=== PATIENT | female | born 1935 | race Caucasian/White ===

== ENCOUNTER → 2021-09-28 15:02 | Outpatient (CLI) | payer MEDICARE, OTHER, SELFPAY ==
--- NOTE | 2021-09-28 15:03 | DI.MRI.S_ITS ---
PROCEDURE: MR KNEE RT WO CON INDICATIONS: knee pain suspect meniscus injury TECHNIQUE: Noncontrast sagittal PD fast spin echo and T2 fast spin echo with fat saturation, sagittal 3-D FLASH with fat saturation; coronal T1 spin echo and PD fast spin echo with fat saturation, and axial PD fast spin echo with fat saturation through the knee. COMPARISON: [facility] ([facility]), CR, XR KNEE RT 3V, 09/14/2021, 9:21. FINDINGS: Image quality: Excellent. Menisci: There is large complex tear of the lateral meniscus involving the anterior horn, body and posterior horn. There is nondisplaced horizontal tear versus intrasubstance degeneration of the posterior horn and the body of the medial meniscus. The meniscal root ligaments appear intact. Cruciate ligaments: There may be partial tear of the distal anterior cruciate ligament. The posterior cruciate ligament appears intact. Medial structures: The medial collateral ligament appears intact. The semimembranosus tendon insertions and meniscocapsular junction appear intact. Visualized portions of the pes anserinus tendons appear normal. No abnormal bursal fluid. Lateral structures: There is partial tear/sprain of the proximal lateral collateral ligament. The biceps femoris tendon appear intact. The popliteus tendon appears normal. Iliotibial band appears normal. Anterior structures: The quadriceps and patellar tendons appear intact. Patellar alignment is normal. No femoral trochlear dysplasia or ventral trochlear prominence. No edema in the infrapatellar fat pad. Bones and cartilage: No bone marrow contusions or fractures. There is full-thickness cartilage defects involving the weight bearing portion of the lateral femoral condyle and lateral tibial plateau. Subchondral edema in the lateral femoral condyle and lateral tibial plateau. There is [id number] cartilage thinning and fibrillation of the lateral femorotibial compartment and patellofemoral compartment. Joint space: There is [id number] knee joint fluid. Small Lazaro's cyst. Normal appearing synovial plicae are incidentally noted. IMPRESSION: 1. Large complex tear of the lateral meniscus involving the anterior horn, body and posterior horn. 2. Nondisplaced horizontal tear versus intrasubstance degeneration of the body and posterior horn of the medial meniscus. 3. Suspect partial tear of the distal ACL. 4. Partial tear/sprain of LCL. 5. Full-thickness cartilage defects of the lateral femoral condyle and lateral tibial plateau with subchondral edema. 6. [id number] knee joint effusion Dictated by: Maday Arriola M.D. on 09/29/2021 at 11:00 Approved by: Maday Arriola M.D. on 09/29/2021 at 11:16
== END ==
PROVIDERS: PCP Family Medicine; Referring Provider Family Medicine; Visit Provider Family Medicine
DX: S83.271A Complex tear of lateral meniscus, current injury, right knee, initial encounter (principal); S83.411A Sprain of medial collateral ligament of right knee, initial encounter; M25.561 Pain in right knee; M25.461 Effusion, right knee
CPT/HCPCS: 73721

== ENCOUNTER → 2022-01-01 13:55 | Outpatient (CLI) | payer MEDICARE, OTHER, SELFPAY ==
[2022-01-01 19:59] LABS: Add Manual Diff / Slide Review NO; Basophils Absolute Auto 100 /uL (0-100); Basophils Percent Auto 1.3 % (0-2); Eosinophils Absolute Auto 300 /uL (0-450); Eosinophils Percent Auto 6.3 % (2-4); Hematocrit 41.2 % (36-46); Hemoglobin 14.1 g/dL (12.0-16.0); Lymphocytes Absolute Auto 1700 /uL (1100-4500); Lymphocytes Percent Auto 34.5 % (25-40); Mean Corpuscular HGB Conc 34.3 % (30-36); Mean Corpuscular Hemoglobin 30.4 PG (26-34); Mean Corpuscular Volume 88.5 fL (80-100); Monocytes Absolute Auto 600 /uL (0-900); Monocytes Percent Auto 11.6 % (3-14); Neutrophils Absolute Auto 2200 /uL (1500-7000); Neutrophils Percent Auto 46.3 % (50-75); Platelet Count 275 X10^3/uL (150-400); Red Blood Cell Count 4.65 X10^6/uL (4.0-5.2); Red Cell Distribution Width 12.8 % (11.6-14.8); White Blood Cell Count 4.8 X10^3/uL (4.5-11.0)
[2022-01-01 20:02] LABS: BUN Creatinine Ratio 23.4 (6-22); Blood Urea Nitrogen 15 mg/dL (7-17); Calcium 8.9 mg/dL (8.4-10.2); Carbon Dioxide 34 mmol/L (22-32); Chloride 99 mmol/L (98-107); Cholesterol 260 mg/dL (140-199); Estimated Glomerular Filt Rate > 60 mL/min (>60); Glucose 100 mg/dL (80-110); HDL Cholesterol 53 mg/dL (40-60); HEMOLYSIS 15 (0-50); LDL Cholesterol Calculated 127 mg/dL (<100); Potassium 4.4 mmol/L (3.4-5.1); Sodium 137 mmol/L (137-145); Triglycerides 399 mg/dL (35-150)
== END ==
PROVIDERS: PCP Family Medicine; Visit Provider Family Medicine
DX: S83.203D Other tear of unspecified meniscus, current injury, right knee, subsequent encounter (principal); G45.9 Transient cerebral ischemic attack, unspecified; D50.9 Iron deficiency anemia, unspecified; I10 Essential (primary) hypertension
CPT/HCPCS: 80048; 80061; 85025

== ENCOUNTER → 2022-05-16 08:42 | Outpatient (CLI) | payer MEDICARE, OTHER, SELFPAY ==
[2022-05-16 19:56] LABS: Cholesterol 264 mg/dL (140-199); HDL Cholesterol 51 mg/dL (40-60); LDL Cholesterol Calculated 188 mg/dL (<100); Triglycerides 127 mg/dL (35-150)
== END ==
PROVIDERS: PCP Family Medicine; Visit Provider Family Medicine
DX: G45.9 Transient cerebral ischemic attack, unspecified (principal); E78.2 Mixed hyperlipidemia
CPT/HCPCS: 80061

== ENCOUNTER → 2023-04-03 10:59 | Outpatient (CLI) | payer MEDICARE, OTHER, SELFPAY ==
[2023-04-03 19:31] LABS: BUN Creatinine Ratio 11.9 (6-22); Blood Urea Nitrogen 8 mg/dL (7-17); Carbon Dioxide 31 mmol/L (22-32); Chloride 98 mmol/L (98-107); Cholesterol 261 mg/dL (140-199); Estimated Glomerular Filt Rate > 60 mL/min (>60); Glucose 97 mg/dL (80-110); HDL Cholesterol 63 mg/dL (40-60); HEMOLYSIS < 15 (0-50); LDL Cholesterol Calculated 172 mg/dL (<100); Sodium 138 mmol/L (137-145); Triglycerides 132 mg/dL (35-150)
== END ==
PROVIDERS: PCP Family Medicine; Visit Provider Family Medicine
DX: E78.2 Mixed hyperlipidemia (principal); I67.2 Cerebral atherosclerosis; G45.9 Transient cerebral ischemic attack, unspecified; I10 Essential (primary) hypertension
CPT/HCPCS: 80048; 80061

== ENCOUNTER 2023-05-15 11:19 | Observation (INO) | payer MEDICARE, OTHER, SELFPAY ==
[2023-05-15] VITALS (24 sets, daily range): BP systolic 107–167; BP diastolic 56–71; PULSE 54–100; RESP 16–28; TEMP 36.1–36.4; O2SAT 93–98; BMI 20.8
--- NOTE | 2023-05-15 11:35 | DI.RAD.S_ITS ---
PROCEDURE: XR CHEST 1V INDICATIONS: Possible stroke TECHNIQUE: One view of the chest was acquired. COMPARISON: [facility], RG, XR CXR 1V, 04/01/2015, 5:43. FINDINGS: Surgical changes and devices: None. Lungs and pleura: Lungs are clear. No pleural effusions or pneumothorax. Mediastinum: Mediastinal contours appear normal. Heart size is normal. Bones and chest wall: No suspicious bony lesions. Overlying soft tissues appear unremarkable. IMPRESSION: No acute cardiopulmonary abnormality is seen. Dictated by: Marquez Bauer M.D. on 05/15/2023 at 12:04 Approved by: Marquez Bauer M.D. on 05/15/2023 at 12:04
--- NOTE | 2023-05-15 11:35 | DI.CT.S_ITS ---
PROCEDURE: CT HEAD/BRAIN WO CON INDICATIONS: Positive BE-FAST, Stroke symptoms TECHNIQUE: Noncontrast 4.5 mm thick angled axial sections acquired from the foramen magnum to the vertex, with coronal and sagittal reformats. For radiation dose reduction, the following was used: automated exposure control, adjustment of mA and/or kV according to patient size. COMPARISON: None. FINDINGS: Image quality: Diagnostic. CSF spaces: Basal cisterns are patent. No extra-axial fluid collections. The ventricles are symmetric in size and shape. Brain: No intracranial bleeds or masses. There is cerebral volume loss for age, with resultant ventricular and sulcal prominence. There are periventricular and deep white matter chronic small vessel ischemic changes. There is intracranial internal carotid artery atherosclerosis. Skull and face: Calvarium and visualized facial bones appear intact, without suspicious lesions. Lens replacements. Sinuses: Visualized sinuses and mastoids are clear. IMPRESSION: No acute intracranial pathology. Dictated by: Marquez Bauer M.D. on 05/15/2023 at 12:05 Approved by: Marquez Bauer M.D. on 05/15/2023 at 12:06
[2023-05-15 11:55] LABS: Add Manual Diff / Slide Review NO; Basophils Absolute Auto 0 /uL (0-100); Basophils Percent Auto 0.5 % (0-2); Eosinophils Absolute Auto 100 /uL (0-450); Eosinophils Percent Auto 1.4 % (2-4); Hematocrit 40.3 % (36-46); Lymphocytes Absolute Auto 1300 /uL (1100-4500); Lymphocytes Percent Auto 20.8 % (25-40); Mean Corpuscular HGB Conc 34.7 % (30-36); Mean Corpuscular Hemoglobin 30.7 PG (26-34); Mean Corpuscular Volume 88.4 fL (80-100); Monocytes Absolute Auto 400 /uL (0-900); Monocytes Percent Auto 7.1 % (3-14); Neutrophils Absolute Auto 4300 /uL (1500-7000); Neutrophils Percent Auto 70.2 % (50-75); Platelet Count 262 X10^3/uL (150-400); Red Blood Cell Count 4.56 X10^6/uL (4.0-5.2); Red Cell Distribution Width 13.8 % (11.6-14.8); White Blood Cell Count 6.1 X10^3/uL (4.5-11.0)
[2023-05-15 12:00] LABS: Prothrombin Time 11.2 SECONDS (9.4-12.5)
[2023-05-15 12:03] LABS: PTT Partial Thromboplastin Tim 31 SECONDS (25.1-36.5)
[2023-05-15 12:05] LABS: Alanine Aminotransferase 11 IU/L (<35); Albumin 3.8 g/dL (3.5-5.0); Albumin Globulin Ratio 1.2 (1.0-2.8); Alkaline Phosphatase 63 U/L (38-126); Aspartate Aminotransferase 24 IU/L (14-36); BUN Creatinine Ratio 19.4 (6-22); Bilirubin Total 0.4 mg/dL (0.2-1.3); Blood Urea Nitrogen 14 mg/dL (7-17); Calcium 8.8 mg/dL (8.4-10.2); Carbon Dioxide 28 mmol/L (22-32); Chloride 102 mmol/L (98-107); Creatine Kinase 29 U/L (30-135); Estimated Glomerular Filt Rate > 60 mL/min (>60); Globulin 3.2 g/dL (1.7-4.1); Glucose 141 mg/dL (80-110); HEMOLYSIS < 15 (0-50); Magnesium 1.9 mg/dL (1.6-2.3); Potassium 3.6 mmol/L (3.4-5.1); Sodium 136 mmol/L (137-145)
[2023-05-15 12:06] LABS: UR Morphine/Opiate cutoff 300 Negative (Negative); Ur Creatinine Normal (Normal); Ur Specific Gravity Normal (Normal); Urine Amphetamines Negative (Negative); Urine Barbiturates Negative (Negative); Urine Benzodiazepines Negative (Negative); Urine Cocaine Negative (Negative); Urine MDMA Negative (Negative); Urine Methadone Negative (Negative); Urine Methamphetamines Negative (Negative); Urine Oxycodone Negative (Negative); Urine Phencyclidine Negative (Negative); Urine Tetrahydrocannabinol Negative (Negative); Urine Tricyclic Antidepressant Negative (Negative); Urine pH Normal (Normal)
[2023-05-15 12:16] LABS: Troponin I < 0.012 ng/mL (0.01-0.034)
--- NOTE | 2023-05-15 13:34 | ED_ITS ---
HPI - Neuro Symptoms/Deficit General Chief Complaint: Neuro Symptoms/Deficit Stated Complaint: is not making eye contact Time Seen by Provider: 05/15/23 13:20 Source: patient and family Mode of arrival: Ambulatory History of Present Illness HPI Narrative: Patient here with daughter for complaints of right temporal headache and vision changes. Patient states headache started slowly on this past Saturday. Seen by primary care this past Saturday for headache no new medications or workup was done. However last night vision changes occurred she states with or without headache she would get still photos in her vision like a flip book movie. Exam of the eyes were isolated and was inconsistent with number of fingers shown for each eye and at times would not be able to see any objects in the left eye. Currently no headache. Fast exam otherwise negative however with NIH score of 1 for vision changes. Patient states she has had IV contrast with CT scan before it just causes her nausea. No rash no trouble breathing no swelling. There has been no slurred speech facial droop. No limb numbness tingling or weakness. On Anticoagulants: No (162mg aspirin) Related Data Home Medications Medication Instructions Recorded Confirmed aspirin 81 mg tablet 162 mg PO DAILY 05/15/23 05/17/23 Previous Rx's Medication Instructions Recorded atenolol 50 mg tablet 50 mg PO DAILY #30 tabs 10/23/21 lisinopril 40 mg tablet 40 mg PO DAILY #90 tabs 12/27/21 atorvastatin 40 mg tablet 40 mg PO BEDTIME 30 days #30 tabs 05/16/23 clopidogrel 75 mg tablet 75 mg PO DAILY 30 days #30 tabs 05/16/23 Allergies Allergy/AdvReac Type Severity Reaction Status Date / Time Iodine and Iodide Containing Allergy Mild Vomiting Verified 05/17/23 10:55 Produc morphine Allergy Mild Verified 05/17/23 10:55 Review of Systems Review of Systems Narrative: GENERAL: negative chills, fatigue, malaise, fever, sweats. HEENT: negative sinus pain, ear pain, sore throat RESPIRATORY: negative dyspnea, cough CARDIOVASCULAR: negative chest pain, palpitations GASTROINTESTINAL: negative nausea, vomiting, abdominal pain : negative dysuria, frequency, hematuria MUSCULOSKELETAL: negative muscle or bony pain SKIN: negative rash, skin lesions NEUROLOGIC: negative weakness, numbness, positive headache, positive vision changes ROS Unobtainable: All systems reviewed & are unremarkable except as noted in HPI and below Hematologic/Lymphatic On Anticoagulants: No (162mg aspirin) Patient History Medical History (Updated 05/17/23 @ 13:47 by Aditya Jiang MD) Hyperlipidemia, mixed Right ACL tear Tear of meniscus of right knee Epidural abscess Iron deficiency anemia Cerebral atherosclerosis Primary open angle glaucoma 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 pt lives alone snug pushpa every day -- checks in with them by 930 am every day. 04/2023 Smoking Status: Never smoker Substance Use Type: does not use Exam Narrative Exam Narrative: GENERAL: in no distress, not toxic not dyspneic HEAD: Normocephalic. EYES: Pupils equal round EOMI ENT: Mucous membranes moist. NECK: Trachea midline. CARDIOVASCULAR: Regular rate and rhythm RESPIRATORY: Clear to auscultation. Breath sounds equal bilaterally. No wheezes, rales, or rhonchi. GASTROINTESTINAL: Abdomen soft, non-tender EXTREMITIES: No gross deformities. BACK: No flank tenderness. NEURO: AOx4. Clear speech no facial droop light touch intact to bilateral face and hands and legs are strong equal production support developer. Negative pronator drift. [id number] intact. However isolating each eye patient is inconsistent with perception of have any fingers SKIN: Warm and dry PSYCH: Not anxious, is cooperative Initial Vital Signs Initial Vital Signs: Vital Signs Temperature 97.3 F L 05/15/23 11:25 Pulse Rate 74 05/15/23 11:25 Respiratory Rate 18 05/15/23 11:25 Blood Pressure 132/62 05/15/23 11:25 Pulse Oximetry 98 05/15/23 11:25 Oxygen Delivery Method Room Air 05/15/23 11:25 Scores NIH Stroke Scale Level of Conciousness: Alert, keenly responsive Ask month/age: Answers both questions correctly. Open/close eyes, close hand: Performs both tasks correctly Best gaze horizontal: Normal Visual ornelas: Partial hemianopia Facial palsy: Normal symetrical movement Left arm drift: No drift for full 10 sec Right arm drift: No drift for full 10 sec Left leg drift: No drift for full 5 sec Right leg drift: No drift for full 5 sec Limb ataxia: Absent Sensory on face/arms/legs: Normal, no sensory loss Best language: No aphasia, normal Dysarthria: Normal Extinction or inattention: No abnormality Total NIH Stroke scale score: 1 Course Orders Ordered: Discontinued Medications Acetaminophen (Acetaminophen 325 Mg Tablet) 650 mg PO Q6H PRN PRN Reason: Fever/Mild Pain (1-3) Last Admin: 05/16/23 12:19 Dose: 650 mg Documented By: BR Aspirin (Aspirin Ec 81 Mg Tablet) 81 mg PO DAILY [facility] Last Admin: 05/16/23 09:20 Dose: 81 mg Documented By: BR Clopidogrel Bisulfate (Clopidogrel 75 Mg Tablet) 300 mg PO NOW ONE Stop: 05/15/23 17:00 Last Admin: 05/15/23 17:10 Dose: 300 mg Documented By: RB Clopidogrel Bisulfate (Clopidogrel 75 Mg Tablet) 75 mg PO DAILY [facility] Stop: 06/06/23 08:59 Last Admin: 05/16/23 09:20 Dose: 75 mg Documented By: LINDA Sodium Chloride (Normal Saline 0.9%) 500 mls @ 1,000 mls/hr IV BOLUS ONE Stop: 05/15/23 14:02 Last Infusion: 05/15/23 16:07 Dose: Infused Documented By: Infusion: 05/15/23 14:21 Dose: 1,000 mls/hr Documented By: Infusion: 05/15/23 13:43 Dose: 0 mls/hr Documented By: Admin: 05/15/23 13:43 Dose: 1,000 mls/hr Documented By: HEIKE Naloxone HCl (Naloxone 0.4 Mg/Ml Vial) 0.2 mg IV Q2MIN PRN PRN Reason: Opiate Reversal Ondansetron HCl (Ondansetron 4 Mg/2 Ml Inj) 4 mg IV NOW PRN PRN Reason: Nausea And Vomiting Last Admin: 05/15/23 13:43 Dose: 4 mg Documented By: HEIKE Ondansetron HCl (Ondansetron 4 Mg Odt) 4 mg PO Q8HR PRN PRN Reason: Nausea And Vomiting Vital Signs Vital signs: Vital Signs - 8 hr 05/15/23 11:25 05/15/23 11:57 05/15/23 11:57 Temperature 97.3 F L Pulse Rate 74 71 Respiratory Rate 18 28 H Blood Pressure 132/62 120/56 L Pulse Oximetry 98 95 Oxygen Delivery Method Room Air Room Air 05/15/23 12:00 05/15/23 12:00 05/15/23 12:24 Temperature Pulse Rate 68 Respiratory Rate 26 H Blood Pressure 107/56 L 138/60 Pulse Oximetry 95 Oxygen Delivery Method 05/15/23 12:24 05/15/23 12:30 05/15/23 12:30 Temperature Pulse Rate 69 69 Respiratory Rate 25 H 23 Blood Pressure 127/60 Pulse Oximetry 97 96 Oxygen Delivery Method 05/15/23 13:00 05/15/23 13:00 05/15/23 13:24 Temperature Pulse Rate 69 Respiratory Rate 24 Blood Pressure 145/65 H 138/63 Pulse Oximetry 98 Oxygen Delivery Method 05/15/23 13:24 05/15/23 13:29 05/15/23 13:30 Temperature Pulse Rate 70 68 Respiratory Rate 25 H 25 H Blood Pressure 143/60 H Pulse Oximetry 97 Oxygen Delivery Method Room Air 05/15/23 13:30 05/15/23 14:00 05/15/23 14:27 Temperature Pulse Rate 69 75 100 H Respiratory Rate 24 24 24 Blood Pressure Pulse Oximetry 97 93 Oxygen Delivery Method 05/15/23 14:29 05/15/23 14:56 05/15/23 14:59 Temperature Pulse Rate 54 L Respiratory Rate Blood Pressure 132/61 150/62 H Pulse Oximetry 94 Oxygen Delivery Method 05/15/23 14:59 05/15/23 15:00 05/15/23 15:00 Temperature Pulse Rate 70 68 Respiratory Rate 24 22 Blood Pressure 132/59 L Pulse Oximetry 95 96 Oxygen Delivery Method Room Air 05/15/23 15:30 05/15/23 15:30 05/15/23 16:00 Temperature Pulse Rate 70 Respiratory Rate 23 Blood Pressure 155/69 H 152/68 H Pulse Oximetry 97 Oxygen Delivery Method 05/15/23 16:00 05/15/23 16:18 05/15/23 16:18 Temperature Pulse Rate 96 H 66 Respiratory Rate 24 26 H Blood Pressure 155/71 H Pulse Oximetry 95 96 Oxygen Delivery Method 05/15/23 16:30 05/15/23 16:30 Temperature Pulse Rate 69 Respiratory Rate 26 H Blood Pressure 156/70 H Pulse Oximetry 97 Oxygen Delivery Method MDM - Neuro Symptoms/Deficit Lab Data 05/16/23 04:20 05/16/23 04:20 Labs: Lab Results 05/15/23 05/15/23 Range/Units 11:36 11:46 WBC 6.1 (4.5-11.0) X10^3/uL RBC 4.56 (4.0-5.2) X10^6/uL Hgb 14.0 (12.0-16.0) g/dL Hct 40.3 (36-46) % MCV 88.4 (80-100) fL MCH 30.7 (26-34) PG MCHC 34.7 (30-36) % RDW 13.8 (11.6-14.8) % Plt Count 262 (150-400) X10^3/uL Neut % (Auto) 70.2 (50-75) % Lymph % (Auto) 20.8 L (25-40) % [place] % (Auto) 7.1 (3-14) % Eos % (Auto) 1.4 L (2-4) % Baso % (Auto) 0.5 (0-2) % Neut # (Auto) 4300 (1824-3314) /uL Lymph # (Auto) 1300 (9498-4540) /uL [place] # (Auto) 400 (0-900) /uL Eos # (Auto) 100 (0-450) /uL Baso # (Auto) 0 (0-100) /uL PT 11.2 (9.4-12.5) SECONDS INR 1.0 (0.9-1.3) APTT 31 (25.1-36.5) SECONDS Sodium 136 L (137-145) mmol/L Potassium 3.6 (3.4-5.1) mmol/L Chloride 102 (98-107) mmol/L Carbon Dioxide 28 (22-32) mmol/L BUN 14 (7-17) mg/dL Creatinine 0.72 (0.52-1.04) mg/dL Estimated GFR > 60 (>60) mL/min BUN/Creatinine Ratio 19.4 (6-22) Glucose 141 H (80-110) mg/dL Calcium 8.8 (8.4-10.2) mg/dL Magnesium 1.9 (1.6-2.3) mg/dL Total Bilirubin 0.4 (0.2-1.3) mg/dL AST 24 (14-36) IU/L ALT 11 (<35) IU/L Alkaline Phosphatase 63 (38-126) U/L Total Creatine Kinase 29 L (30-135) U/L Troponin I < 0.012 (0.01-0.034) ng/mL Total Protein 7.0 (6.3-8.2) g/dL Albumin 3.8 (3.5-5.0) g/dL Globulin 3.2 (1.7-4.1) g/dL Albumin/Globulin Ratio 1.2 (1.0-2.8) U Opiates 300ng/mL cut Negative (Negative) Ur Oxycodone Screen Negative (Negative) Urine Methadone Screen Negative (Negative) Ur Barbiturates Screen Negative (Negative) U Tricyclic Antidepress Negative (Negative) Ur Phencyclidine Scrn Negative (Negative) Ur Amphetamines Screen Negative (Negative) U Methamphetamines Scrn Negative (Negative) Ur MDMA Scrn (Ecstasy) Negative (Negative) U Benzodiazepines Scrn Negative (Negative) Urine Cocaine Screen Negative (Negative) U Marijuana (THC) Screen Negative (Negative) Urine pH Normal (Normal) Urine Specific [place] Normal (Normal) Ur Creatinine Normal (Normal) Point of Care Testing Glucose POC 161 Urine Dip Bedside Urine Glucose Negative Bedside Urine Bilirubin - Negative Bedside Urine Ketone - Negative Urine Specific [place] 1.015 Bedside Urine Occult Blood - Negative Bedside Urine pH 5.5 Bedside Urine Protein - Negative Bedside Urine Urobilinogen - Negative Bedside Urine Nitrite - Negative Bedside Urine Leukocytes - Negative Esterase Imaging Data CT scan - head: Radiologist's Impression: [place] [address] CT Scan Report Signed Patient: Phuong Golden MR#: [id number] : 1935 Acct:[id number] Age/Sex: 88 / F Date of Service: 05/15/23 Loc: ED Accession Number: [id number] Procedure: CT head/brain wo con Ordering Provider: Lino Travis MD PROCEDURE: CT HEAD/BRAIN WO CON INDICATIONS: Positive BE-FAST, Stroke symptoms TECHNIQUE: Noncontrast 4.5 mm thick angled axial sections acquired from the foramen magnum to the vertex, with coronal and sagittal reformats. For radiation dose reduction, the following was used: automated exposure control, adjustment of mA and/or kV according to patient size. COMPARISON: None. FINDINGS: Image quality: Diagnostic. CSF spaces: Basal cisterns are patent. No extra-axial fluid collections. The ventricles are symmetric in size and shape. Brain: No intracranial bleeds or masses. There is cerebral volume loss for age, with resultant ventricular and sulcal prominence. There are periventricular and deep white matter chronic small vessel ischemic changes. There is intracranial internal carotid artery atherosclerosis. Skull and face: Calvarium and visualized facial bones appear intact, without suspicious lesions. Lens replacements. Sinuses: Visualized sinuses and mastoids are clear. IMPRESSION: No acute intracranial pathology. Dictated by: Marquez Bauer M.D. on 05/15/2023 at 12:05 Approved by: Marquez Bauer M.D. on 05/15/2023 at 12:06 Chest x-ray: Radiologist's Impression: [address] [address] XRay Report Signed Patient: Phuong Golden MR#: [id number] : 1935 Acct:[id number] Age/Sex: 88 / F Date of Service: 05/15/23 Loc: ED Accession Number: [id number] Procedure: XR chest 1V Ordering Provider: Lino Travis MD PROCEDURE: XR CHEST 1V INDICATIONS: Possible stroke TECHNIQUE: One view of the chest was acquired. COMPARISON: Outside Facility, RG, XR CXR 1V, 04/01/2015, 5:43. FINDINGS: Surgical changes and devices: None. Lungs and pleura: Lungs are clear. No pleural effusions or pneumothorax. Mediastinum: Mediastinal contours appear normal. Heart size is normal. Bones and chest wall: No suspicious bony lesions. Overlying soft tissues appear unremarkable. IMPRESSION: No acute cardiopulmonary abnormality is seen. Dictated by: Marquez Bauer M.D. on 05/15/2023 at 12:04 Approved by: Marquez Bauer M.D. on 05/15/2023 at 12: CTA - brain/neck: Radiologist's Impression: [address] [address] [address] Scan Report Signed Patient: Phuong Golden MR#: [id number] : 1935 Acct:[id number] Age/Sex: 88 / F Date of Service: 05/15/23 Loc: ED Accession Number: [id number] Procedure: CT angio head and neck Ordering Provider: Lino Travis MD PROCEDURE: CT ANGIO HEAD AND NECK INDICATIONS: Vision changes/altered mental status TECHNIQUE: After the administration of intravenous contrast, 1 mm thick sections acquired from the aortic arch through the [place]. MIP reformats of the arterial vasculature were utilized. For radiation dose reduction, the following was used: automated exposure control, adjustment of mA and/or kV according to patient size. COMPARISON: None. FINDINGS: Cerebral CT Angiogram: Internal carotid arteries: No acute findings. Intracranial ICA are patent with no significant stenosis. No occlusion. No aneurysm. Mild cavernous segment atherosclerotic calcifications without aneurysm or stenosis Anterior cerebral arteries: Unremarkable. No significant stenosis. No occlusion. No aneurysm. Middle cerebral arteries: Unremarkable. No significant stenosis. No occlusion. No aneurysm. 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 The P2 segment is supplied by a widely patent posterior communicating artery. Remainder of the distal vasculature unremarkable. Basilar artery: Unremarkable. No significant stenosis. No occlusion. No aneurysm. Vertebral arteries: Unremarkable as visualized. Dural venous sinuses: Unremarkable given phase of enhancement. Other: Arterial phase brain parenchyma is unremarkable. Neck CT Angiogram: Internal carotid arteries: Unremarkable. No significant stenosis. No dissection or occlusion. Common carotid arteries: Unremarkable. No significant stenosis. No dissection or occlusion. External carotid arteries: Unremarkable. No occlusion. Vertebral arteries: Unremarkable. No significant stenosis. No dissection or occlusion. 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 Scarring bronchiectasis in the right upper lobe. Aortic Arch and Mediastinum: Partially visualized aortic arch unremarkable without evidence of aneurysm. Origins of the great vessels unremarkable. IMPRESSION: 1. Mild atherosclerotic calcification without focal stenosis, aneurysm or vascular malformation in the head and neck. Any quantitative measurements of stenosis were performed using NASCET criteria. Approved by: Daryl Brown M.D. on 05/15/2023 at 13:16 MRI brain: Radiologist's Impression: [address] [address] Magnetic Resonance Report Signed Patient: Phuong Golden MR#: [id number] : 1935 Acct:[id number] Age/Sex: 88 / F Date of Service: 05/15/23 Loc: ED Accession Number: [id number] Procedure: MR head/brain wo con Ordering Provider: Lino Travis MD PROCEDURE: MR HEAD/BRAIN WO CON INDICATIONS: Stroke/vision changes TECHNIQUE: Non-contrast axial T1 spin echo, axial T2 fast spin echo, sagittal and axial FLAIR, coronal T2 fast spin echo, axial gradient echo, axial diffusion and ADC through the brain. COMPARISON: [facility], CT, CT ANGIO HEAD AND NECK, 05/15/2023, 13:45. FINDINGS: Image quality: Excellent. CSF spaces: Ventricles appear symmetric in size and shape. Basal cisterns are patent. No extra-axial fluid collections. Brain: No intracranial bleeds or mass effects. There is cerebral volume loss for age. There are moderate periventricular and deep white matter chronic small vessel ischemic changes. Brainstem appears normal. Diffusion-weighted images show right AIRPLANE FLIGHT ATTENDANT distribution occipital infarct. Restricted water diffusion on diffusion- weighted cyst image 65/11 measures approximately 1.6 x 1.9 cm. On image 62 of series 11 restricted diffusion measures 1.7 x 1.4 cm. There is associated cytotoxic edema on the FLAIR images. No chronic ischemic insults. Normal intravascular flow voids are present. Skull and face: Calvarial bone marrow is normal in signal. Orbits are normal. Sinuses: Sinuses and mastoids are clear. IMPRESSION: 1. Acute right AIRPLANE FLIGHT ATTENDANT distribution cortical occipital infarct. 2. Age-related volume loss and moderate small vessel ischemic change. Dictated by: Milan Arias M.D. on 05/15/2023 at 15:11 Approved by: Milan Arias M.D. on 05/15/2023 at 15:16 [facility] Narrative Medical decision making narrative: Patient here with daughter for complaints of right temporal headache and vision changes. Patient states headache started slowly on this past Saturday. Seen by primary care this past Saturday for headache no new medications or workup was done. However last night vision changes occurred she states with or without headache she would get still photos in her vision like a flip book movie. Exam of the eyes were isolated and was inconsistent with number of fingers shown for each eye and at times would not be able to see any objects in the left eye. Currently no headache. Fast exam otherwise negative however with NIH score of 1 for vision changes. Patient states she has had IV contrast with CT scan before it just causes her nausea. No rash no trouble breathing no swelling. There has been no slurred speech facial droop. No limb numbness tingling or weakness. After history and exam CBC CMP EKG urinalysis CT head chest x-ray CT angiogram head and neck normal saline MRI brain MDM Medical records reviewed: Office visit 2 days ago Differential considered: Includes but not limited to stroke TIA UTI dementia psychosis Lab Test results independently reviewed as above. Pertinent findings: WBC 6.1 sodium 136 potassium 3.6 glucose 141 troponin less than 0.012 urinalysis no leukocyte no nitrite, drug screen negative Independently reviewed EKG normal sinus rhythm rate 67 normal EKG Imaging studies independently reviewed: CT head chest x-ray no acute finding Consultations: 3:30 p.m.. Spoke with [facility] stroke, dr Salvador, recommends admission echocardiogram physical therapy eval telemetry observation. She will call back regarding medication changes 4:[address] Salvador again. She recommends starting patient on aspirin 81 mg daily with Plavix loading 300 mg once and then 75 mg daily, dual antiplatelets for 21 days and then transitioning to Plavix only 75 mg daily. Outpatient Holter monitor after discharge from hospital. Patient needs admission echocardiogram PT eval and observation. Recommend cholesterol profile. Also recommends CYP 2 C 19 lab test which is a send out. Patient should not be on Plavix if this comes back intermediate. [facility] can be contacted for interpreting results. 5:10 p.m.. Spoke with hospitalist, dr clemons, will admit patient Treatments: Normal saline/Plavix Re-evaluations: Updated patient and daughter results and they do understand need for admission. Blood work observation echocardiogram medication changes physical therapy eval 5:00 p.m.. Patient states the vision changes occurred last night. She was in an office on Saturday 2 days ago and the vision changes was not present Discussion: Appropriate for admission. I have reviewed with neurology. No tPA at this time given time window greater than 4 hours. And no large vessel occlusion. Needs admission as described above with neurology Diagnosis: Acute stroke Stroke Core Measures Exclusion Criteria TPA in CVA: Symptom Onset >3 or 4.5 Hours Discharge Plan Departure Patient Disposition: Admitted as Observation Clinical Impression: Cerebrovascular accident Admit Date/Time: 05/15/23 17:06 Admit Provider: Srikanth Clemons
[2023-05-15] MEDS: SODIUM CHLORIDE 0.9% 500 ML 1000 ML IV (13:43)
[2023-05-15] MEDS: ONDANSETRON 4 MG/2 ML INJ IV (13:43)
--- NOTE | 2023-05-15 14:37 | DI.MRI.S_ITS ---
PROCEDURE: MR HEAD/BRAIN WO CON INDICATIONS: Stroke/vision changes TECHNIQUE: Non-contrast axial T1 spin echo, axial T2 fast spin echo, sagittal and axial FLAIR, coronal T2 fast spin echo, axial gradient echo, axial diffusion and ADC through the brain. COMPARISON: Located Within [facility], CT, CT ANGIO HEAD AND NECK, 05/15/2023, 13:45. FINDINGS: Image quality: Excellent. CSF spaces: Ventricles appear symmetric in size and shape. Basal cisterns are patent. No extra-axial fluid collections. Brain: No intracranial bleeds or mass effects. There is cerebral volume loss for age. There are moderate periventricular and deep white matter chronic small vessel ischemic changes. Brainstem appears normal. Diffusion-weighted images show right BORDER INSPECTOR distribution occipital infarct. Restricted water diffusion on diffusion-weighted cyst image 65/11 measures approximately 1.6 x 1.9 cm. On image 62 of series 11 restricted diffusion measures 1.7 x 1.4 cm. There is associated cytotoxic edema on the FLAIR images. No chronic ischemic insults. Normal intravascular flow voids are present. Skull and face: Calvarial bone marrow is normal in signal. Orbits are normal. Sinuses: Sinuses and mastoids are clear. IMPRESSION: 1. Acute right BORDER INSPECTOR distribution cortical occipital infarct. 2. Age-related volume loss and moderate small vessel ischemic change. Dictated by: Milan Arias M.D. on 05/15/2023 at 15:11 Approved by: Milan Arias M.D. on 05/15/2023 at 15:16
--- NOTE | 2023-05-15 17:00 | DI.ECHO.S_ITS ---
[facility] +[facility]+ : : [address] : [address] [address] : : : : [id number] : : : : Phone: [phone]+ Echocardiogram Report + + :Name: LANDEN SAUNDERS Study Date: 05/16/2023 Height: 64 in : :[facility] ReadingLocation: Weight: 121 lb : : Gender: Female BSA: 1.6 m2 : :: 1935 Age: 88 yrs BP: 169/59 mmHg: :Reason For Study: STROKE : :Ordering Physician: CB, : :CHARLI Performed By: Nadege Suresh : :Referring: CHARLI VIVAR : + + Interpretation Summary The left ventricle is normal in size. The left ventricular ejection fraction is normal. The ejection fraction is estimated to be 65-70%. The right ventricle is normal in size and function. There is moderate mitral regurgitation. The mitral valve mean gradient is 3.0 mmHg. There is mild mitral stenosis. The IVC is of normal diameter and collapses greater than 50% with a sniff. This suggests a low right atrial pressure of 3 mm Hg. Mild atherosclerotic plaque(s) in the descending aorta. Procedure: A two-dimensional transthoracic echocardiogram with color flow and Doppler was performed. The study quality was technically adequate. There is no prior echocardiogram noted for this patient. The patient had occasional PVCs during the exam. The patient was in sinus rhythm with heart rates between 71-82 bpm during the exam. Left Ventricle: Proximal septal thickening is noted. The left ventricle is normal in size. There is no echo evidence for significant left ventricular outflow tract obstruction. There is no thrombus. The ejection fraction is estimated to be 65-70%. The left ventricular ejection fraction is normal. There are no focal wall motion abnormalities. MV E/A: 1.3 Med Peak E' Olayinka: 5.3 cm/sec E/E' med: 23.7. Right Ventricle: The right ventricle is normal in size and function. Atria: The left atrium is mildly dilated. Right atrial size is normal. There is no Doppler evidence for an interatrial shunt. Mitral Valve: The mitral valve leaflets are mildly calcified. There is moderate mitral annular calcification. There is a flat closure plane of the the mitral valve leaflets. Restricted mitral leaflets. The mitral valve mean gradient is 3.0 mmHg. There is mild mitral stenosis. There is moderate mitral regurgitation. The mitral regurgitant jet is eccentrically directed. Aortic Valve: The aortic valve is trileaflet. The aortic valve is mildly calcified. There is mild aortic valve sclerosis. There is minimally reduced leaflet mobility. There is no aortic valve stenosis. No aortic regurgitation is present. Tricuspid Valve: The tricuspid valve is normal in structure and function. There is trace tricuspid regurgitation. Pulmonary artery pressures cannot be estimated because of the lack of a measurable TR jet velocity. Pulmonic Valve: The pulmonic valve leaflets are thin and pliable; valve motion is normal. There is trace pulmonic regurgitation. Great Vessels: The aortic root is normal size. The dimensions of the ascending aorta are normal. Mild atherosclerotic plaque(s) in the descending aorta. The IVC is of normal diameter and collapses greater than 50% with a sniff. This suggests a low right atrial pressure of 3 mm Hg. Pericardium/ Pleura There is no pericardial effusion. There is no pleural effusion. MMode/2D Measurements & Calculations LVIDd: 4.0 cm LVOT diam: 2.0 cm LVIDs: 2.6 cm Ao root diam: 2.9 cm FS: 34.2 % asc Aorta Diam: 3.0 cm IVSd: 0.85 cm Ao Arch Diam (Prox Trans): 2.6 cm LVPWd: 0.89 cm LV hammonds. diameter/BSA (cm/m^2): 2.5 LV sys. diameter/BSA (cm/m^2): 1.6 LA A2 area: 19.1 cm2 RA long axis: 5.6 cm LA A4 area: 17.2 cm2 RA area: 12.6 cm2 LA length (vol): 5.2 cm RA vol: 24.1 ml LA vol: 53.6 ml RA : 15.3 ml/m2 LA vol index: 33.9 ml/m2 IVC diam: 1.9 cm RVD1 (basal): 2.2 cm RVD2 (mid): 2.0 cm TAPSE: 1.7 cm Doppler Measurements & Calculations Ao V2 max: 154.0 cm/sec LVOT Max Olayinka: 71.9 cm/sec Ao V2 mean: 112.4 cm/sec LV V1 max P.1 mmHg Ao max P.7 mmHg LV V1 VTI: 17.1 cm Ao mean P.5 mmHg ALINA(I,D): 1.6 cm2 Ao V2 VTI: 32.1 cm ALINA(V,D): 1.4 cm2 sev ratio: 0.53 ALINA indexed to BSA (cm^2/m^2): 1.0 MV E max olayinka: 124.4 cm/sec PA V2 max: 60.3 cm/sec MV A max olayinka: 93.5 cm/sec PA V2 mean: 42.5 cm/sec MV E/A: 1.3 PA mean P.82 mmHg Med Peak E' Olayinka: 5.3 cm/sec PA pr(Accel): 44.7 mmHg E/E' med: 23.7 Lat Peak E' Olayinka: 7.5 cm/sec E/E' lat: 16.7 E/e' average: 20.2 MV dec time: 0.25 sec MVA(VTI): 1.4 cm2 MV V2 mean: 77.2 cm/sec SV(LVOT): 52.7 ml MV mean P.0 mmHg MV V2 VTI: 37.3 cm Reading Physician:02:46 PM
[2023-05-15] MEDS: CLOPIDOGREL 75 MG TABLET 300 MG PO (17:10)
--- NOTE | 2023-05-15 18:08 | PC.NURSE ---
Pt to room 221 via w/c by ER Staff. Pt is alert and oriented x 3. Pt able to transfer self to bed. Pt denies vision in her left eye but states she sees clearly out of her right eye. Pt denies pain, nausea or shortness of breath. Pt oriented to room, call light, bed controls, and tv controls. Pt agrees to call for assistance as needed and to not get up without assistance. Pt denies a hx of falls but with her limited view on the left side agrees to have help when moving around. Bed alarm on for safety.
[2023-05-16] VITALS (8 sets, daily range): BP systolic 155–178; BP diastolic 55–84; PULSE 75–80; RESP 16–18; TEMP 36.4–36.6; O2SAT 91–97
[2023-05-16 05:12] LABS: Add Manual Diff / Slide Review NO; Basophils Absolute Auto 0 /uL (0-100); Basophils Percent Auto 0.4 % (0-2); Eosinophils Absolute Auto 200 /uL (0-450); Eosinophils Percent Auto 4.6 % (2-4); Hematocrit 34.7 % (36-46); Lymphocytes Absolute Auto 1600 /uL (1100-4500); Lymphocytes Percent Auto 29.8 % (25-40); Mean Corpuscular HGB Conc 34.5 % (30-36); Mean Corpuscular Hemoglobin 30.4 PG (26-34); Monocytes Absolute Auto 700 /uL (0-900); Monocytes Percent Auto 12.6 % (3-14); Neutrophils Absolute Auto 2900 /uL (1500-7000); Neutrophils Percent Auto 52.6 % (50-75); Platelet Count 216 X10^3/uL (150-400); Red Blood Cell Count 3.95 X10^6/uL (4.0-5.2); Red Cell Distribution Width 13.8 % (11.6-14.8); White Blood Cell Count 5.4 X10^3/uL (4.5-11.0)
[2023-05-16 05:20] LABS: Hemoglobin A1C% w Est Avg Glu 5.3 % (4.0-6.0)
[2023-05-16 05:22] LABS: Blood Urea Nitrogen 13 mg/dL (7-17); Calcium 8.1 mg/dL (8.4-10.2); Carbon Dioxide 33 mmol/L (22-32); Chloride 107 mmol/L (98-107); Cholesterol 192 mg/dL (140-199); Estimated Glomerular Filt Rate > 60 mL/min (>60); Glucose 81 mg/dL (80-110); HDL Cholesterol 44 mg/dL (40-60); HEMOLYSIS < 15 (0-50); LDL Cholesterol Calculated 125 mg/dL (<100); Potassium 3.9 mmol/L (3.4-5.1); Sodium 139 mmol/L (137-145); Triglycerides 115 mg/dL (35-150)
[2023-05-16] MEDS: ASPIRIN EC 81 MG TABLET PO (09:20)
[2023-05-16] MEDS: CLOPIDOGREL 75 MG TABLET PO (09:20)
--- NOTE | 2023-05-16 10:29 | PT.IIE ---
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 Osteomyelitis of vertebra, site unspecified Primary open angle glaucoma Right ACL tear Tear of meniscus of right knee Transient ischemic attack (TIA) Physical Therapy Inpatient Evaluation/Re-Eval M1 PT/OT-IP Prior Functional Status Start: 05/16/23 08:25 Freq: NEEDED Status: Active Protocol: Document 05/16/23 10:02 MB (Rec: 05/16/23 10:29 MB [id number]) Medical Review Prior Functional Status Medical History Reviewed Yes Diet/Fluid Consistency Regular Communication WNLs Mobility and Gait I Activities of Daily Living and IADL's I Social History Household Members none Living Arrangements House Number of Floors (Floors) One Floor Number of Stairs To Enter/Railing? No real steps, has a porch Home Environment Standard Height Toilet,Walk in Shower,Tub/Shower Employment Status Retired M2 PT-IP Current Condition Start: 05/16/23 08:25 Freq: NEEDED Status: Active Protocol: Document 05/16/23 10:02 MB (Rec: 05/16/23 10:29 MB [id number]) Physical Therapy Current Condition Current Condition Evaluation Date 05/16/23 Treatment Diagnosis R LEAD ETL DEVELOPER infarct and left visual changes, reports of visual hallucination M3 PT-IP Subjective Start: 05/16/23 08:25 Freq: NEEDED Status: Active Protocol: Document 05/16/23 10:02 MB (Rec: 05/16/23 10:29 MB [id number]) Subjective Physical Therapy Visit Type Type Initial Evaluation Visit Start Time 10:02 Visit Stop Time 10:14 Number of RIM FIRE CHARGER OPERATOR Visits 0 Physical Therapy Visit Comments Patient Comments Pt would like to get her ECHO done so she can get a ferry back to [place]. She is agreeable to PT. Therapy Pain Assessment Pain When Pain Assessed At Rest Pain Present Pain Present Denied Pain M4 PT-IP Mobility and Gait Start: 05/16/23 08:25 Freq: NEEDED Status: Active Protocol: Document 05/16/23 10:02 MB (Rec: 05/16/23 10:29 MB [id number]) PT-Bed Mobility Assessment Rolling Type of Rolling Bilateral Supine to Sit Supine to Sit Independent Sit to Supine Sit to Supine Independent Scooting Scooting to Edge of Bed Independent Scooting Up and Down in Bed Independent PT-Transfer Assessment Sit to and From Stand Sit to and from Stand Independent,Standby Assistance Equipment Transfer Assistive Device Gait Belt Orthotic/Prosthetic Devices or Brace: No Transfers Transfer Destination Bed Transfer Technique Ambulation Transfer Ability Level of Assist Independent,Standby Assistance Comments Mobility Comments Pt wears pull on fluffy Gait Assessment Gait Gait Assistance Required: Independent,Standby Assistance Distance (Feet) 100 Able to Maintain Weight Bearing Status Yes During Gait Assistive Devices Assistive Device Gait Belt Orthotic/Prosthetic Devices or Brace: No Factors Limiting Gait Function Factors Limiting Gait Function Poor Balance Comments Gait Comments Slow gait and pt tracks more with head and occ weaving and no true LOB with gait. PT asks if pt feels like she is mobilizing like normal and she states that she is Stair Climbing Assessment Evaluation Level of Assist On Stairs Independent,Standby Assistance Devices Stair Climbing Assistive Devices Right Railing Technique/Endurance Stair Climbing Direction Ascend and Descend Stair Climbing Technique Step Over Step Number of Steps Climbed 3 Query Text: Stair Climbing Set # Repetitions (reps) 1 Comments Stair Climbing Comments Superv to mod I with steps PT-Balance Assessment Sitting Balance and Reactions Static Sitting Balance Ability Normal Dynamic Sitting Balance Ability Normal Standing Balance and Reactions Static Standing Balance Ability Normal Dynamic Standing Balance Ability Good M5 PT-IP Objective Assessments Start: 05/16/23 08:25 Freq: NEEDED Status: Active Protocol: Document 05/16/23 10:02 MB (Rec: 05/16/23 10:29 MB [id number]) Orientation Orientation/Cognition Level of Alertness Alert Orientation Name,Age,Birthday,Month,Date, Year,Day of Week,Place, Situation Language Function Ability No Deficits Noted Safety Awareness Understands Safety Issues Memory Description No Deficits Noted Comments Pt denies other posterior circulation symptoms like dizziness, drop attacks, trouble swallowing and speaking. Her smile is relatively symmetrical and she states that left side of her face doesn't feel numb but doesn't feel normal either Gross Range of Motion Lower Extremity ROM Assessment Within Functional Limits Strength Lower Extremity Strength Assessment Within Functional Limits Sensation Assessment Comments Sensation Comments Pt denies paresthesias M6 PT-IP Treatment Start: 05/16/23 08:25 Freq: NEEDED Status: Active Protocol: Document 05/16/23 10:02 MB (Rec: 05/16/23 10:29 MB [id number]) Physical Therapy Treatment Education Education Provided Safety Other Treatments Other Treatment Performed PT ed pt in importance of following up with primary care given new stroke and now she is at higher risk for another stroke, reviewed S&S of stroke and risk factors M7 PT-IP Assessment and Plan Start: 05/16/23 08:25 Freq: NEEDED Status: Active Protocol: Document 05/16/23 10:02 MB (Rec: 05/16/23 10:29 MB [id number]) PT Summary Assessment and Plan Potential Rehabilitation Potential Excellent Status of Condition at Evaluation Evolving Summary Progress Towards Goals Safe For Discharge Assessment Summary Pt is an 88 y/o female who looks much younger than her age. She only reports left- sided vision changes and feels normal otherwise. She is mildly unsteady with gait and is not interested in AD. When PT asks if she follows up with a primary on [place] she states that she does not like seeing her doctor. She has no acute PT needs. Recommend follow-up about her vision as this can affect safety, driving, balance and gait. Frequency of Treatment Frequency Of Treatment Discharge Recommendations To Nursing Amount of Assist Needed Standby Assistance Discharge Recommendations PT Discharge Recommendations Home with Assistance Transportation Needs at Discharge Private Vehicle
--- NOTE | 2023-05-16 11:00 | OT.IP.EVAL ---
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 Osteomyelitis of vertebra, site unspecified Primary open angle glaucoma Right ACL tear Tear of meniscus of right knee Transient ischemic attack (TIA) Surgical History (Last Reviewed 05/15/23 @ 13:40 by Lino Travis MD) History of pneumothorax S/P cataract surgery (~07/07/14) Occupational Therapy Inpatient Evaluation/Re-Eval M1 PT/OT-IP Prior Functional Status Start: 05/16/23 12:20 Freq: NEEDED Status: Active Protocol: Document 05/16/23 10:05 [facility] (Rec: 05/16/23 12:40 [facility] [id number]) Medical Review Prior Functional Status Medical History Reviewed Yes Diet/Fluid Consistency Regular Communication WNLs Mobility and Gait I Activities of Daily Living and IADL's I Social History Household Members none Living Arrangements House Number of Floors (Floors) One Floor Number of Stairs To Enter/Railing? No real steps, has a porch Home Environment Standard Height Toilet,Walk in Shower,Tub/Shower Employment Status Retired Additional Social History Comment Pt states has a [employer] tub. 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 Patient/Caregiver Goals To go home. OT Pain Assessment Pain When Pain Assessed At Rest Pain Present Pain Present Denied Pain M4 OT- IP ADL's Start: 05/16/23 12:20 Freq: Status: Active Protocol: Document 05/16/23 10:05 [facility] (Rec: 05/16/23 12:40 [facility] [id number]) OT CFD-Ighi-Ogfzrua General Evaluation Self-Feeding Ability Independent OT ADL-Grooming General Evaluation Grooming Ability Independent OT ADL-Oral Care General Eval Oral Care Ability Independent OT ADL-Dressing General Eval Upper Body Dressing Ability Independent OT ADL-Toileting General Evaluation Toileting Ability Independent Comments OT Toileting Comments Pt able to use the toilet independently in the room. OT ADL-Bathing Comments OT Bathing Comments Able to simulate pt getting into a jacuzzi tub as pt able to get up and down from the floor independently on her own with distant SBA for safety. M5 OT- IP IADL's Start: 05/16/23 12:20 Freq: Status: Active Protocol: Document 05/16/23 10:05 [facility] (Rec: 05/16/23 12:40 [facility] [id number]) OT-Instrumental Activities of Daily Living Home Safety Awareness Home Safety Comments At this time due to cognitive and visual deficits would be best for pt to stay with her daughter to provide supervision and assist as needed. M6 OT- IP Functional Cognition Start: 05/16/23 12:20 Freq: Status: Active Protocol: Document 05/16/23 10:05 [facility] (Rec: 05/16/23 12:40 [facility] [id number]) Cognitive Factors Limiting Selfcare Function Cognitive Ability Level of Alertness Alert Patient Orientation Name,Age,Birthday,Month,Date, Year,Day of Week,Place, Situation Attention Span Ability Capable of Focused Attention, Capable of Sustained Attention Ability to Follow Commands Able to Follow One Step Commands Memory Description Short Term Impaired,Working Impaired Executive Function Ability Unable to Switch Focus,Unable to Remember Details Cognitive Tests SLUMS Pt scored 20/30 which implies decreased cognitive and probably her cognition has been affected by her CVA. Prior pt states is very sharp with no memory issues. Pt not able to subtract 100-23 accurately, able to recall 3/5 objects after time passed, not able to state 3 or 4 digit numbers backwards, not able to draw the numbers on the clock evenly spaced or draw the hands of the clock accurately after time given. Pt is well aware that she is not thinking well. Cognitive Comments Cognitive Assessment Comments Pt MOD complexity and main barriers are decreased peripheral vision on the left eye and Pt scored 311 seconds on [place] Making Part B which implies severe impairments with visual attention, task switching, mental flexibility, executive functioning, and speed of processing. Pt recommended not to drive at this time. Pt states to stay with her daughter initially. OT- Vision and Hearing OT- Hearing Assessment OT- Hearing Assessment WFL OT- Vision Assessment Visual Acuity Glasses For Reading Visual Attentiveness WFL Occular Pursuits WFL Visual Thorne Impaired Vision Assessment Comments Decreased left peripheral vision. M7 OT- IP Mobility and Balance Start: 05/16/23 12:20 Freq: Status: Active Protocol: Document 05/16/23 10:05 [facility] (Rec: 05/16/23 12:40 [facility] [id number]) OT- Bed Mobility Assessment Supine to Sit Supine to Sit Assist Independent Sit to Supine Sit to Supine Assist Independent Scooting Scooting to Edge of Bed Independent OT-Transfer Assessment Sit to and From Stand Sit to and from Stand Independent Transfers Transfer Ability Independent Technique Transfer Destination Bed Transfer Technique Stand Step Pivot Devices Transfer Assistive Devices None Comments Mobility Comments Pt able to get up and down from the floor independently without a device. OT- Balance Assessment Sitting Balance and Reactions Static Sitting Balance Ability Normal Dynamic Sitting Balance Ability Normal Standing Balance and Reactions Static Standing Balance Ability Normal Dynamic Standing Balance Ability Good M8 OT- IP Objective Assessments Start: 05/16/23 12:20 Freq: Status: Active Protocol: Document 05/16/23 10:05 [facility] (Rec: 05/16/23 12:40 [facility] [id number]) OT Gross Range of Motion Upper Extremity Range of Motion Assessment Within Functional Limits OT Strength Upper Extremity Strength Assessment Within Functional Limits Comments Strength Comments WFl for age and lifestyle. OT- Coordination Assessment Upper Extremity Finger to Nose Test Within Functional Limits Finger Tapping Test Within Functional Limits OT-Muscle Tone Assessment Muscle Tone WNL Yes M9 OT- IP Assessment and Plan Start: 05/16/23 12:20 Freq: Status: Active Protocol: Document 05/16/23 10:05 [facility] (Rec: 05/16/23 12:40 [facility] [id number]) OT Summary Assessment and Plan Potential Rehabilitation Potential Good Analytic Complexity at Evaluation Moderate Summary OT Impairments Functional Cognition,Bathing Progress Towards Goals Progressing Toward Goals Assessment Summary Pt MOD complexity and main barriers are decreased peripheral vision on the left eye and decreased executive cognition and scored 311 seconds on [place] Making Part B which implies severe impairments with visual attention, task switching, mental flexibility, executive functioning, and speed of processing. Pt recommended not to drive at this time. Pt states to stay with her daughter initially. Also suggested pt to have outpt DATE NIGHT SITTER or OT for cognitive needs and to see a divisional human resources director . Goals Bathing Goal Independent OT-Other Goals Pt to be able to incorporate visual strategies for all ADL and mobility. Days to Meet Goals 5 Frequency of Treatment Frequency Of Treatment Once a Day Treatment Plan OT Treatment Plan Functional Cognition Training, Vision Retraining,Patient/ Family Education,Discharge Planning Discharge Recommendations OT Discharge Recommendations Home with 24/7 Assist,oupt OT/DATE NIGHT SITTER Available Transportation Needs at Discharge Private Vehicle
--- NOTE | 2023-05-16 12:12 | DIET.CONS ---
Dietary Consultation Note Admission Date: 05/15/2023 17:06 Assessment: 88 y F admitted with complaints of vision changes and temporal headache. Nutrition screened due to low MNA. Met with pt at bedside. Reports starting a vegan diet Feb 11 2023 to help reduce cholesterol. Has since lost 15#. Pt highly prefers convenient foods and reports not being a foodie. Walks 4x/week. Dietary recall: B-tea, avocado toast Afternoon meal: pasta, vegan butter, sometimes a salad, sometimes will add cheese or have veggie burger Juice, homemade Ht: 162.56 cm Wt: 55.111 kg BMI: 20.8 UBW: 60 kg (-8.3% weight loss in 3 months, severe) Last BM: 05/15/23 (05/15/23 17:57) MNA: 9 Miguel Angel Score: 21 Diet: 05/15/23 Dinner Vegan Diet Diet Modifications: Food Texture: Level 7 - Regular Liquid Consistency: Level 0 - Thin Labs: RBC 3.95 X10^6/uL (4.0-5.2) L 05/16/23 04:20 Hgb 12.0 g/dL (12.0-16.0) 05/16/23 04:20 Hct 34.7 % (36-46) L 05/16/23 04:20 Creatinine 0.65 mg/dL (0.52-1.04) 05/16/23 04:20 Hemoglobin A1c 5.3 % (4.0-6.0) 05/16/23 04:20 Nutrition Diagnosis: Moderate malnutrition r/t inadequate protein intake and food and nutrient related knowledge deficit on vegan diet as evidenced by 8% weight loss in 3 months, severe, <75% of estimated energy requirement for 3 months. Interventions: 1. MNT for adequate energy and protein intake in context of vegan diet, with educ on vegan protein sources 2. Reviewed lean non-vegan protein options 2. Noted f/u scheduled with PCP for weight loss in June EER: [id number] kcals/day (25-30 kcals, BMI) 65-75 g protein/day (1.25 g/kg for malnutrition) Monitoring/Evaluations: f/u prn, PO intakes Electronically Signed by: Bridgett Saxena 05/16/23 12:12 Clinical Dietitian [address] [id number]
[2023-05-16] MEDS: ACETAMINOPHEN 325 MG TABLET 650 MG PO (12:19)
--- NOTE | 2023-05-16 13:10 | PM.DS.1 ---
History of Present Illness History of Present Illness Date Patient Seen: 05/16/23 Time Patient Seen: 13:10 Chief complaint: is not making eye contact Narrative: Patient here with daughter for complaints of right temporal headache and vision changes. Patient states headache started slowly on this past Saturday. Seen by primary care this past Saturday for headache no new medications or workup was done. However last night vision changes occurred she states with or without headache she would get still photos in her vision like a flip book movie. Exam of the eyes were isolated and was inconsistent with number of fingers shown for each eye and at times would not be able to see any objects in the left eye. Currently no headache. Fast exam otherwise negative however with NIH score of 1 for vision changes. Patient states she has had IV contrast with CT scan before it just causes her nausea. No rash no trouble breathing no swelling. There has been no slurred speech facial droop. No limb numbness tingling or weakness. Discharge Providers Provider Date of admission: 05/15/23 17:06 Discharge Date: 05/16/23 Primary care physician: Aditya Jiang MD Consults: 05/15/23 17:44 Consult to Occupational Therapy Evaluate & Treat Comment: Physician Instructions: Evaluate and treat Consult to Occupational Therapy Evaluate & Treat Comment: Physician Instructions: Evaluate and treat Consult to Physical Therapy Evaluate & Treat Comment: Physician Instructions: Evaluate and Treat Consult to Physical Therapy Evaluate & Treat Comment: Physician Instructions: Evaluate and Treat Discharge provider: Srikanth Clemons DO Summary Hospital Course Discharge Diagnosis: 1. Acute CVA 2. HTN 3. Cognitive impairment by SLUMS testing Hospital Course: This is an 88 year old female with PMH of TIA, HTN who presented after developing a L visual field cut. Infarct was seen on MRI. She was admitted for further observation and evaluation. TTE did not show evidence of PFO. Telemetry was unremarkable. Telestroke services recommended a [id number] genotype to help determine if clopidogrel monotherapy is appropriate for this patient, which is a sendout test and should result in 7-9 days. They recommended for now DAPT for 21 days, followed by clopidogrel monotherapy after. No changes to her other medications were recommended. Statin was prescribed. She was recommended for discharge home after PT/OT evaluations, and TTE was unremarkable with no evidence for PFO. SLUMS testing was performed and was 20/30 with OT. She was recommended against driving. Patient should follow up with PCP for ongoing management and evaluation, including possible holter monitor. Time Spent with Patient Time spent: Greater than 30 minutes Exam Vital Signs (past 8 hours): - 05/16/23 08:00 05/16/23 09:00 05/16/23 12:00 Temperature 98 F 97.5 F L Pulse Rate 80 75 Respiratory Rate 16 16 Blood Pressure 155/62 H 178/84 H Pulse Oximetry 91 91 97 Oxygen Delivery Method Room Air Oxygen Flow Rate 0 0 0 Oxygen Delivery Method Room Air Oxygen Flow Rate 0 Narrative Exam Narrative: Gen: No acute distress CV RRR Pulm: no respiratory distress distress Abd: Soft, non-distended Ext: no edema Neuro: alert, oriented, no focal deficits on exam, improved L visual deficits. Objective Labs 05/16/23 04:20 05/16/23 04:20 Labs: Laboratory Results - last 24 hr 05/16/23 04:20 WBC 5.4 RBC 3.95 L Hgb 12.0 Hct 34.7 L MCV 88.0 MCH 30.4 MCHC 34.5 RDW 13.8 Plt Count 216 Neut % (Auto) 52.6 Lymph % (Auto) 29.8 [place] % (Auto) 12.6 Eos % (Auto) 4.6 H Baso % (Auto) 0.4 Neut # (Auto) 2900 Lymph # (Auto) 1600 [place] # (Auto) 700 Eos # (Auto) 200 Baso # (Auto) 0 Sodium 139 Potassium 3.9 Chloride 107 Carbon Dioxide 33 H BUN 13 Creatinine 0.65 Estimated GFR > 60 BUN/Creatinine Ratio 20.0 Glucose 81 Hemoglobin A1c 5.3 Calcium 8.1 L Magnesium 2.0 Triglycerides 115 Cholesterol 192 LDL Cholesterol, Calc 125 H HDL Cholesterol 44 TSH 3.20 [facility] Medical History Hyperlipidemia, mixed Right ACL tear Tear of meniscus of right knee Epidural abscess Iron deficiency anemia Cerebral atherosclerosis Primary open angle glaucoma 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 pt lives alone snug pushpa every day -- checks in with them by 930 am every day. 04/2023 Discharge Plan Discharge Plan Patient Disposition: Home Provider Discharge Comment: You were admitted to the hospital with a small stroke affecting your vision. Continue aspirin and plavix for 21 days, then stop baby aspirin and continue on plavix. tele-stroke services / neurology may reach out to change your plan based on a send out blood test to see if medications should be changed. We also recommend stopping hormone replacement therapy after a stroke. Recommend against driving at this time, please see an toilet attendant for vision check prior to driving and follow up with primary care. Discharge orders & Medications Prescriptions: New clopidogrel 75 mg Tablet 75 mg PO DAILY 30 Days Qty: 30 0RF atorvastatin 40 mg tablet 40 mg PO BEDTIME 30 Days Qty: 30 0RF Continued atenolol 50 mg tablet 50 mg PO DAILY Qty: 30 0RF Rx Instructions: 50 mg tablet; TAKE 1 TABLET DAILY; Quantity: 30 Tablet(s); 30 days supply; 0 refill(s) aspirin 81 mg Tablet 162 mg PO DAILY lisinopril 40 mg tablet 40 mg PO DAILY Qty: 90 1RF Discontinued estradiol 1 mg tablet 1 mg PO DAILY Qty: 90 3RF Follow up/Referrals: Aditya Jiang MD [Primary Care Provider] - Diet/Activity/Treatments Diet: Diet as Tolerated and Regular Activity: As tolerated no restrictions Visit Report/Discharge Packet Instructions: DI for Stroke-Ischemic, Clopidogrel Stand Alone Forms: Patient Portal/API, Stroke Signs & Symptoms Discharge Data Primary Care Provider: Aditya Jiang Attending Provider: Srikanth Clemons [place] Date/Time: 05/15/23 17:06
--- NOTE | 2023-05-16 13:11 | P.HP_ITS ---
History of Present Illness History of Present Illness Date Patient Seen: 05/16/23 Time Patient Seen: 08:00 Chief complaint: is not making eye contact Narrative: 88 F who presented to the ER with complaints of R headache and vision changes. Seen by PCP on saturday for headache but had no visual field changes. Yesterday she developed a left visual field cut. CT head unremarkable, MRI did show an acute infarct. She was admitted overnight for further monitoring and evaluation of CVA. Patient was seen the following morning after admission, managed by tele- hosptialist overnight. Discussed with tele-stroke service yesterday. 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 pt lives alone snug pushpa every day -- checks in with them by 930 am every day. 04/2023 Meds Home Medications and Allergies Home Medications Medication Instructions Recorded Confirmed Type atenolol 50 mg tablet 50 mg PO DAILY #30 tabs 10/23/21 05/15/23 Rx lisinopril 40 mg tablet 40 mg PO DAILY #90 tabs 12/27/21 05/15/23 Rx aspirin 81 mg tablet 162 mg PO DAILY 05/15/23 05/15/23 History atorvastatin 40 mg tablet 40 mg PO BEDTIME 30 days #30 tabs 05/16/23 Rx clopidogrel 75 mg tablet 75 mg PO DAILY 30 days #30 tabs 05/16/23 Rx Allergies Allergy/AdvReac Type Severity Reaction Status Date / Time Iodine and Iodide Containing Allergy Mild Vomiting Verified 05/15/23 11:25 Produc morphine Allergy Mild Verified 05/15/23 11:25 Review of Systems Review of Systems Narrative: All other systems reviewed with the patient and are negative unless otherwise stated. Exam Vital Signs (past 8 hours): - 05/16/23 08:00 05/16/23 09:00 05/16/23 12:00 Temperature 98 F 97.5 F L Pulse Rate 80 75 Respiratory Rate 16 16 Blood Pressure 155/62 H 178/84 H Pulse Oximetry 91 91 97 Oxygen Delivery Method Room Air Oxygen Flow Rate 0 0 0 Oxygen Delivery Method Room Air Oxygen Flow Rate 0 Narrative Exam Narrative: Gen: No acute distress CV RRR Pulm: no respiratory distress distress Abd: Soft, non-distended Ext: no edema Neuro: alert, oriented, no focal deficits on exam, improved L visual deficits. Objective Labs 05/16/23 04:20 05/16/23 04:20 Labs: Laboratory Results - last 24 hr 05/16/23 04:20 WBC 5.4 RBC 3.95 L Hgb 12.0 Hct 34.7 L MCV 88.0 MCH 30.4 MCHC 34.5 RDW 13.8 Plt Count 216 Neut % (Auto) 52.6 Lymph % (Auto) 29.8 [place] % (Auto) 12.6 Eos % (Auto) 4.6 H Baso % (Auto) 0.4 Neut # (Auto) 2900 Lymph # (Auto) 1600 [place] # (Auto) 700 Eos # (Auto) 200 Baso # (Auto) 0 Sodium 139 Potassium 3.9 Chloride 107 Carbon Dioxide 33 H BUN 13 Creatinine 0.65 Estimated GFR > 60 BUN/Creatinine Ratio 20.0 Glucose 81 Hemoglobin A1c 5.3 Calcium 8.1 L Magnesium 2.0 Triglycerides 115 Cholesterol 192 LDL Cholesterol, Calc 125 H HDL Cholesterol 44 TSH 3.20 Assessment & Plan Assessment & Plan narrative: 1. Acute CVA - DAPT recommended by telestroke for 21 days, then continuing plavix only given aspirin failure - Telestroke Recommended a genetic test for possible medication change as an outpatient, ordered and is sendout test. - TTE ordered - telemetry - atorvastatin 40 likely at discharge if discharged today. - PT/OT evaluation. 2. HTN continue home atenolol and lisinopril Code: Full, surrogate is patient's daughter DVT: Lovenox daily I have utilized all available immediate resources to obtain, update, or review the patient's current medications. Discussed with ER provider, telestroke services for additional history. I have reviewed patient's imaging, documentation, and labs personally. Dispo: admit observation, likely discharge later today (one night after admission date).
--- NOTE | 2023-05-16 13:41 | CM.DANOTE ---
DCP Assessment Note Pt is a 88yo F here under OBS following CVA. PCP Aditya Jiang Payer Medicare and PROFESSOR OF RELIGION reviewed EMR. Per provider in morning rounds, anticipate home later today. Per PT/OT note, rec home with assistance. Per chart review, pt lives alone [place]. Echo Pending. PROFESSOR OF RELIGION met with pt in room. Pt reports being indep at baseline. Reports ambulating w/o DME- no equipt but knows how to get resources if needed on [place] if needed. Pt is planning to stay with dtr Tori ([phone]) for a few days to have assistance at home. Pt's POA is other dtr Kasey ([phone]) but she lives in [place]. Pt's friend will be here at 2pm in order to take [place] ferry. Pt claims she has a reservation for the 3:40 ferry. Pt denies any other CM/DCP needs. PROFESSOR OF RELIGION updated RN/provider. DC order in. Plan: pt to dc home to stay with dtr for a few days until back to baseline. Friend to take her home on ferry. No identified CM needs. CM team will follow as needed. ORESTES Lewis Discharge Planning/Care Management Advanced directive, confirm from FAMILY Start: 05/15/23 18:10 Freq: Q24H Status: Active Protocol: Document 05/15/23 18:10 CM (Rec: 05/15/23 18:20 CM [id number]) Advance Directive, confirm on record Time 18:20 Person contacted Pt Copy received No CM Discharge Assessment Start: 05/16/23 13:35 Freq: Status: Active Protocol: Document 05/16/23 13:35 SL (Rec: 05/16/23 13:41 SL [id number]) Discharge Planning Assessment Assigned Automation And Controls Supervisor ORESTES Swanson DPOA/Assigned Designee Name karol Parks Contact Information [phone] Advance Directives? Yes Advance Directives on File No History Provided By Patient Prior Living Arrangements House Household Members none Type of transporation used prior to Drives own vehicle admit Independent with ADL's Yes Is patient alert and oriented? Yes Comment none, but knows where to get equip [place] if needed Barriers to Discharge No Discharge Plan Home Transportation Arrangement friend in POV Referrals Initiated None needed Whiteboard Updated in Patient Room with Yes name and ext. # of Automation And Controls Supervisor Review Status In Process Please Provide Date Initial DC 05/16/23 Assessment Was Performed Next Review Type Continued Stay Review
--- NOTE | 2023-05-16 14:56 | PC.NURSE ---
pt dressed and ready to go. friend is at the bedside. pt had concerns of needing a priority boarding pass for ferry to [facility] but was told that it was not necessary and would be okay to wait in line for ferry. confirmed absence of IV and telemetry. pt has all belongings. discharge education given about stroke s/sx, clopidogrel (new medication) and home medications. fall safety reviewed with pt. pt denies having further questions and eager to go home. pt transported via wheelchair to [facility] of friend.
== END 2023-05-16 14:34 | disposition home or self-care (01) ==
LOC: ED 15:38 → AC 17:06
PROVIDERS: Admitting Provider Internal Medicine; Emergency Provider Emergency Medicine; PCP Family Medicine; Referring Provider Emergency Medicine; Visit Provider Internal Medicine
DX: I63.89 Other cerebral infarction (principal); I69.312 Visuospatial deficit and spatial neglect following cerebral infarction; I10 Essential (primary) hypertension; R29.701 NIHSS score 1
CPT/HCPCS: 36415; 70450; 70496; 70498; 70551; 71045; 80048; 80053; 80061; 80305; 81003; 82550; 82962; 83036; 83735; 84443; 84484; 85025; 85610; 85730; 93005; 93010; 93306; 96361; 96374; 97161; 97166; 97530; 97535; 99285; G0378; J2405; Q9967

== ENCOUNTER → 2023-07-11 10:36 | Outpatient (CLI) | payer MEDICARE, OTHER, SELFPAY ==
[2023-05-15 17:57] VITALS: BMI 20.8
[2023-07-11 19:14] LABS: Add Manual Diff / Slide Review NO; Basophils Absolute Auto 0 /uL (0-100); Basophils Percent Auto 0.6 % (0-2); Eosinophils Absolute Auto 200 /uL (0-450); Eosinophils Percent Auto 4.1 % (2-4); Hematocrit 38.9 % (36-46); Hemoglobin 13.4 g/dL (12.0-16.0); Lymphocytes Absolute Auto 1400 /uL (1100-4500); Lymphocytes Percent Auto 25.6 % (25-40); Mean Corpuscular HGB Conc 34.4 % (30-36); Mean Corpuscular Volume 87.3 fL (80-100); Monocytes Absolute Auto 600 /uL (0-900); Monocytes Percent Auto 11.9 % (3-14); Neutrophils Absolute Auto 3100 /uL (1500-7000); Neutrophils Percent Auto 57.8 % (50-75); Platelet Count 242 X10^3/uL (150-400); Red Blood Cell Count 4.45 X10^6/uL (4.0-5.2); Red Cell Distribution Width 12.3 % (11.6-14.8); White Blood Cell Count 5.4 X10^3/uL (4.5-11.0)
[2023-07-11 19:20] LABS: BUN Creatinine Ratio 19.2 (6-22); Blood Urea Nitrogen 14 mg/dL (7-17); Calcium 9.6 mg/dL (8.4-10.2); Carbon Dioxide 36 mmol/L (22-32); Chloride 96 mmol/L (98-107); Cholesterol 262 mg/dL (140-199); Estimated Glomerular Filt Rate > 60 mL/min (>60); Glucose 90 mg/dL (80-110); HDL Cholesterol 56 mg/dL (40-60); HEMOLYSIS < 15 (0-50); LDL Cholesterol Calculated 165 mg/dL (<100); Sodium 135 mmol/L (137-145); Triglycerides 206 mg/dL (35-150)
== END ==
PROVIDERS: PCP Family Medicine; Visit Provider Family Medicine
DX: D50.9 Iron deficiency anemia, unspecified (principal); I10 Essential (primary) hypertension; R63.4 Abnormal weight loss; I67.2 Cerebral atherosclerosis; Z86.73 Personal history of transient ischemic attack (TIA), and cerebral infarction without residual deficits
CPT/HCPCS: 80048; 80061; 85025

== ENCOUNTER → 2023-08-23 10:00 | Outpatient (CLI) | payer MEDICARE, OTHER, SELFPAY ==
[2023-05-15 17:57] VITALS: BMI 20.8
[2023-08-26 13:36] LABS: Fecal Immunochemical Test Negative (Negative)
== END ==
PROVIDERS: PCP Family Medicine; Visit Provider Family Medicine
DX: D50.8 Other iron deficiency anemias (principal); Z13.9 Encounter for screening, unspecified; Z12.11 Encounter for screening for malignant neoplasm of colon
CPT/HCPCS: 82274

== ENCOUNTER 2023-11-14 15:00 | Observation (INO) | payer MEDICARE, OTHER, SELFPAY ==
[2023-05-15 17:57] VITALS: BMI 20.8
[2023-11-14] VITALS (14 sets, daily range): BP systolic 152–216; BP diastolic 69–102; PULSE 68–97; RESP 19–31; TEMP 36.2–36.3; O2SAT 90–97; BMI 22.6
--- NOTE | 2023-11-14 15:22 | EKG_ITS ---
[address] [address] Test Date: 2023-11-14 Pat Name: Phuong Golden Department: [facility] Room: Gender: Female Manager Transfusion: MAIRA : 1935 Requested By: Order Number: [id number] Reading MD: Cruzito Eng MD Measurements Intervals [place] Rate: 68 P: 72 HI: 154 QRS: 100 QRSD: 96 T: 49 QT: 436 QTc: 463 Interpretive Statements Normal sinus rhythm Rightward axis Electronically Signed On 11-15-2023 4:52:43 PDT by Cruzito Eng MD
--- NOTE | 2023-11-14 15:22 | DI.RAD.S_ITS ---
PROCEDURE: XR CHEST 1V INDICATIONS: Possible stroke TECHNIQUE: One view of the chest was acquired. COMPARISON: [facility], CR, XR CHEST 1V, 05/15/2023, 11:40. FINDINGS: Surgical changes and devices: None. Lungs and pleura: Lungs are clear. No pleural effusions or pneumothorax. Mediastinum: Mediastinal contours appear normal. Heart size is normal. Bones and chest wall: No suspicious bony lesions. Overlying soft tissues appear unremarkable. IMPRESSION: No acute cardiopulmonary abnormality is seen. Dictated by: Marquez Bauer M.D. on 11/14/2023 at 16:13 Approved by: Marquez Bauer M.D. on 11/14/2023 at 16:14
--- NOTE | 2023-11-14 15:26 | DI.CT.S_ITS ---
PROCEDURE: CT ANGIO HEAD AND NECK INDICATIONS: neuro symptoms greater than 24 hours TECHNIQUE: After the administration of intravenous contrast, 1 mm thick sections acquired from the aortic arch through the [place]. 3-dimensional pqzxgnx-tgoorryqx-pesymhbycb (MIP) and/or volume rendering reformats were acquired of the central intracranial vasculature and neck separately. For radiation dose reduction, the following was used: automated exposure control, adjustment of mA and/or kV according to patient size. COMPARISON: [facility], CT, CT ANGIO HEAD AND NECK, 05/15/2023, 13:45. FINDINGS: Image quality: Diagnostic. BRAIN: Please refer to separately dictated CT of the head HEAD CT ANGIOGRAPHY: Anterior circulation: Intracranial internal carotid arteries are normal in size and flow with atherosclerotic calcifications. The flow within the paired anterior cerebral arteries is normal and symmetric. The flow within the middle cerebral arteries is normal and symmetric. The anterior communicating artery is seen. No aneurysms are seen. Posterior circulation: Visualized portions of the vertebral arteries demonstrate normal caliber, and join to form a normal appearing basilar artery. origin of the bilateral trains dispatcher supervisor. Flow within the posterior cerebral arteries is normal and symmetric. No aneurysms are seen. NECK CT ANGIOGRAPHY: Carotid system: The great vessels demonstrate a conventional anatomy as they arise from the aortic arch with atherosclerotic calcifications. The origins of the common carotid arteries appear patent. Moderate stenosis of the left subclavian artery after the takeoff of the vertebral artery. The common carotid arteries demonstrate normal caliber and courses. The bifurcation regions demonstrate atherosclerosis with mild, less than 50 percent stenosis bilaterally, stable compared to prior. The internal carotid arteries demonstrate normal calibers and courses. Posterior circulation: The origins of the vertebral arteries both appear widely patent. The more superior extracranial portions of both vertebral arteries also demonstrate normal courses and calibers. They join to form a normal appearing basilar artery. Soft tissues: Visualized neck soft tissues demonstrate no suspicious abnormalities. Right apical pleural parenchymal scarring with calcifications. Bilateral dependent atelectasis. Bones: No suspicious bony lesions. Visualized cervical spine appears normally aligned. Degenerative changes of the cervical spine. IMPRESSION: No significant intracranial arterial abnormality is seen. No significant abnormality is seen within the arteries of the neck. Any quantitative measurements of stenosis were performed using NASCET criteria. Dictated by: Marquez Bauer M.D. on 11/14/2023 at 16:50 Approved by: Marquez Bauer M.D. on 11/14/2023 at 16:54
--- NOTE | 2023-11-14 15:26 | DI.CT.S_ITS ---
PROCEDURE: CT HEAD/BRAIN WO CON INDICATIONS: neuro symptoms greater than 24 hours TECHNIQUE: Noncontrast 4.5 mm thick angled axial sections acquired from the foramen magnum to the vertex, with coronal and sagittal reformats. For radiation dose reduction, the following was used: automated exposure control, adjustment of mA and/or kV according to patient size. COMPARISON: [facility], CT, CT HEAD/BRAIN WO CON, 05/15/2023, 11:49. FINDINGS: Image quality: Diagnostic. CSF spaces: Basal cisterns are patent. No extra-axial fluid collections. The ventricles are symmetric in size and shape. Brain: Area of hypodensity within the left basal ganglia appears new compared to prior. No intracranial bleeds or masses. There is cerebral volume loss for age, with resultant ventricular and sulcal prominence. There are periventricular and deep white matter chronic small vessel ischemic changes. There is intracranial internal carotid artery atherosclerosis. Skull and face: Calvarium and visualized facial bones appear intact, without suspicious lesions. Sinuses: Visualized sinuses and mastoids are clear. IMPRESSION: Small area of hypoattenuation within the left basal ganglia, concerning for subacute infarct. Recommend MRI brain for further evaluation. This is not definitely seen on prior. No acute intracranial hemorrhage. Dictated by: Marquez Bauer M.D. on 11/14/2023 at 16:47 Approved by: Marquez Bauer M.D. on 11/14/2023 at 16:49
[2023-11-14 15:48] LABS: Add Manual Diff / Slide Review NO; Basophils Absolute Auto 0 /uL (0-100); Basophils Percent Auto 0.6 % (0-2); Eosinophils Absolute Auto 200 /uL (0-450); Eosinophils Percent Auto 4.2 % (2-4); Hematocrit 41.7 % (36-46); Hemoglobin 14.6 g/dL (12.0-16.0); Lymphocytes Absolute Auto 1700 /uL (1100-4500); Lymphocytes Percent Auto 35.5 % (25-40); Mean Corpuscular HGB Conc 34.9 % (30-36); Mean Corpuscular Volume 85.8 fL (80-100); Monocytes Absolute Auto 600 /uL (0-900); Monocytes Percent Auto 12.4 % (3-14); Neutrophils Absolute Auto 2200 /uL (1500-7000); Neutrophils Percent Auto 47.3 % (50-75); Platelet Count 290 X10^3/uL (150-400); Red Blood Cell Count 4.86 X10^6/uL (4.0-5.2); Red Cell Distribution Width 13.3 % (11.6-14.8); White Blood Cell Count 4.8 X10^3/uL (4.5-11.0)
[2023-11-14] MEDS: ONDANSETRON 4 MG/2 ML INJ IV (16:00)
[2023-11-14] MEDS: methylPREDNISolone 125 MG/2 ML VIAL IV (16:00)
[2023-11-14] MEDS: diphenhydrAMINE 50 MG/ML VIAL IV (16:00)
--- NOTE | 2023-11-14 16:01 | ED.NEUROSD ---
HPI - Neuro Symptoms/Deficit <Srikanth Proctor DO - Last Filed: 11/15/23 08:46> General Chief Complaint: Neuro Symptoms/Deficit Stated Complaint: Poss TIA Time Seen by Provider: 11/14/23 15:44 Source: patient Mode of arrival: Ambulatory History of Present Illness HPI Narrative: Patient is a 88-year-old female history of hypertension, CVA comes into the ED for evaluation of headache started yesterday. States it has resolved. Denies any visual changes denies any numbness weakness tingling to bilateral lower extremities or upper extremities. She denies any other symptoms. She states that she is here because her daughter was worried that she might have had another stroke. Was seen here previously for the same symptoms and was diagnosed with a stroke, review of records show patient did have an acute right DIAMOND CUTTER distribution with cortical occipital infarct. Patient had evaluation NIH of 0 On Anticoagulants: No Related Data Home Medications Medication Instructions Recorded Confirmed atenolol 50 mg tablet 50 mg PO DAILY 11/14/23 11/14/23 Previous Rx's Medication Instructions Recorded lisinopril 40 mg tablet 40 mg PO DAILY #90 tabs 12/27/21 clopidogrel 75 mg tablet 75 mg PO DAILY 30 days #90 tabs 05/24/23 hydrochlorothiazide 12.5 mg capsule 12.5 mg PO DAILY #90 caps 10/04/23 Allergies Allergy/AdvReac Type Severity Reaction Status Date / Time Iodine and Iodide Containing Allergy Mild Vomiting Verified 08/08/23 14:02 Produc morphine Allergy Mild Verified 08/08/23 14:02 Review of Systems <Srikanth Proctor DO - Last Filed: 11/15/23 08:46> Hematologic/Lymphatic On Anticoagulants: No Patient History <Srikanth Proctor DO - Last Filed: 11/15/23 08:46> Medical History Hyperlipidemia, mixed Right ACL tear Tear of meniscus of right knee Epidural abscess Iron deficiency anemia Cerebral atherosclerosis Primary open angle glaucoma 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 pt lives alone snug pushpa every day -- checks in with them by 930 am every day. 04/2023 Smoking Status: Never smoker Substance Use Type: does not use Exam <Srikanth Proctor DO - Last Filed: 11/15/23 08:46> Initial Vital Signs Initial Vital Signs: Vital Signs Temperature 97.4 F L 11/14/23 15:15 Pulse Rate 80 11/14/23 15:15 Respiratory Rate 20 11/14/23 15:15 Blood Pressure 161/69 H 11/14/23 15:15 Pulse Oximetry 97 11/14/23 15:15 Oxygen Delivery Method Room Air 11/14/23 15:15 <Emy Thakkar MD - Last Filed: 11/14/23 21:48> Initial Vital Signs Initial Vital Signs: Vital Signs Temperature 97.4 F L 11/14/23 15:15 Pulse Rate 80 11/14/23 15:15 Respiratory Rate 20 11/14/23 15:15 Blood Pressure 161/69 H 11/14/23 15:15 Pulse Oximetry 97 11/14/23 15:15 Oxygen Delivery Method Room Air 11/14/23 15:15 Const: Awake, alert, no acute distress, nontoxic appearing Cardiac: regular rate, regular rhythm RESP: unlabored, clear bilaterally, no wheezing GI: Soft, nontender, nondistended, no rebound, no guarding MSK: Atraumatic, full range of motion, pulses equal Skin: Warm, Dry, intact, no rashes Neuro: AO x2, CN II-XII grossly intact, moves all extremities Course <Srikanth Proctor DO - Last Filed: 11/15/23 08:46> Orders Ordered: Acetaminophen (Acetaminophen 325 Mg Tablet) 650 mg PO Q6H PRN PRN Reason: Fever/Mild Pain (1-3) Aspirin (Aspirin Ec 81 Mg Tablet) 81 mg PO DAILY [facility] Atenolol (Atenolol 50 Mg Tablet) 50 mg PO DAILY [facility] Atorvastatin Calcium (Atorvastatin 20 Mg Tablet) 80 mg PO BEDTIME [facility] Clopidogrel Bisulfate (Clopidogrel 75 Mg Tablet) 75 mg PO DAILY [facility] Heparin Sodium (Porcine) (Heparin 5,000 Unit/Ml Vial) 5,000 unit SUBCUT BID [facility] Lisinopril (Lisinopril 20 Mg Tablet) 40 mg PO DAILY [facility] Naloxone HCl (Naloxone 0.4 Mg/Ml Vial) 0.2 mg IV Q2MIN PRN PRN Reason: Opiate Reversal Ondansetron HCl (Ondansetron 4 Mg/2 Ml Inj) 4 mg IV Q8HR PRN PRN Reason: Nausea And Vomiting Sodium Chloride (Sodium Chloride 0.9% Flush) 10 ml IV BID [facility] Sodium Chloride (Sodium Chloride 0.9% Flush) 10 ml IV BID [facility] Discontinued Medications Aspirin (Aspirin Ec 325 Mg Tablet) 325 mg PO NOW ONE Stop: 11/14/23 18:24 Last Admin: 11/14/23 19:06 Dose: 325 mg Documented By: JOSE Atorvastatin Calcium (Atorvastatin 20 Mg Tablet) 80 mg PO NOW ONE Stop: 11/14/23 21:31 Last Admin: 11/14/23 21:56 Dose: 80 mg Documented By: JOSE Clopidogrel Bisulfate (Clopidogrel 75 Mg Tablet) 75 mg PO NOW ONE Stop: 11/14/23 21:32 Last Admin: 11/14/23 21:55 Dose: 75 mg Documented By: JOSE Diphenhydramine HCl (Diphenhydramine 50 Mg/Ml Vial) 50 mg IV NOW ONE Stop: 11/14/23 15:52 Last Admin: 11/14/23 16:00 Dose: 50 mg Documented By: JOSE Sodium Chloride (Normal Saline 0.9%) 1,000 mls @ 75 mls/hr IV CONT [facility] Last Admin: 11/14/23 22:50 Dose: 75 mls/hr Documented By: KATI Methylprednisolone (Methylprednisolone 125 Mg/2 Ml Vial) 125 mg IV NOW ONE Stop: 11/14/23 15:52 Last Admin: 11/14/23 16:00 Dose: 125 mg Documented By: JOSE Ondansetron HCl (Ondansetron 4 Mg/2 Ml Inj) 4 mg IV NOW PRN PRN Reason: Nausea And Vomiting Last Admin: 11/14/23 16:00 Dose: 4 mg Documented By: JOSE Ondansetron HCl (Ondansetron 4 Mg Odt) 4 mg SL NOW PRN PRN Reason: Nausea And Vomiting Vital Signs Vital signs: Vital Signs - 8 hr 11/14/23 15:15 11/14/23 15:32 11/14/23 15:32 Temperature 97.4 F L Pulse Rate 80 68 Respiratory Rate 20 Blood Pressure 161/69 H 170/76 H Pulse Oximetry 97 94 Oxygen Delivery Method Room Air 11/14/23 16:00 11/14/23 16:00 11/14/23 16:38 Temperature Pulse Rate 70 Respiratory Rate 26 H 31 H Blood Pressure 156/94 H Pulse Oximetry 95 Oxygen Delivery Method 11/14/23 18:00 11/14/23 18:30 11/14/23 19:07 Temperature Pulse Rate 83 84 86 Respiratory Rate 28 H 23 Blood Pressure Pulse Oximetry 91 93 90 L Oxygen Delivery Method 11/14/23 19:30 11/14/23 20:00 11/14/23 21:00 Temperature Pulse Rate 83 84 84 Respiratory Rate 27 H 27 H 28 H Blood Pressure Pulse Oximetry 92 91 95 Oxygen Delivery Method <Emy Thakkar MD - Last Filed: 11/14/23 21:48> Orders Ordered: Acetaminophen (Acetaminophen 325 Mg Tablet) 650 mg PO Q6H PRN PRN Reason: Fever/Mild Pain (1-3) Aspirin (Aspirin Ec 81 Mg Tablet) 81 mg PO DAILY [facility] Atenolol (Atenolol 50 Mg Tablet) 50 mg PO DAILY [facility] Atorvastatin Calcium (Atorvastatin 20 Mg Tablet) 80 mg PO BEDTIME [facility] Clopidogrel Bisulfate (Clopidogrel 75 Mg Tablet) 75 mg PO DAILY [facility] Heparin Sodium (Porcine) (Heparin 5,000 Unit/Ml Vial) 5,000 unit SUBCUT BID [facility] Lisinopril (Lisinopril 20 Mg Tablet) 40 mg PO DAILY [facility] Naloxone HCl (Naloxone 0.4 Mg/Ml Vial) 0.2 mg IV Q2MIN PRN PRN Reason: Opiate Reversal Ondansetron HCl (Ondansetron 4 Mg/2 Ml Inj) 4 mg IV Q8HR PRN PRN Reason: Nausea And Vomiting Sodium Chloride (Sodium Chloride 0.9% Flush) 10 ml IV BID [facility] Sodium Chloride (Sodium Chloride 0.9% Flush) 10 ml IV BID [facility] Discontinued Medications Aspirin (Aspirin Ec 325 Mg Tablet) 325 mg PO NOW ONE Stop: 11/14/23 18:24 Last Admin: 11/14/23 19:06 Dose: 325 mg Documented By: JOSE Atorvastatin Calcium (Atorvastatin 20 Mg Tablet) 80 mg PO NOW ONE Stop: 11/14/23 21:31 Last Admin: 11/14/23 21:56 Dose: 80 mg Documented By: JOSE Clopidogrel Bisulfate (Clopidogrel 75 Mg Tablet) 75 mg PO NOW ONE Stop: 11/14/23 21:32 Last Admin: 11/14/23 21:55 Dose: 75 mg Documented By: JOSE Diphenhydramine HCl (Diphenhydramine 50 Mg/Ml Vial) 50 mg IV NOW ONE Stop: 11/14/23 15:52 Last Admin: 11/14/23 16:00 Dose: 50 mg Documented By: JOSE Sodium Chloride (Normal Saline 0.9%) 1,000 mls @ 75 mls/hr IV CONT [facility] Last Admin: 11/14/23 22:50 Dose: 75 mls/hr Documented By: KATI Methylprednisolone (Methylprednisolone 125 Mg/2 Ml Vial) 125 mg IV NOW ONE Stop: 11/14/23 15:52 Last Admin: 11/14/23 16:00 Dose: 125 mg Documented By: JOSE Ondansetron HCl (Ondansetron 4 Mg/2 Ml Inj) 4 mg IV NOW PRN PRN Reason: Nausea And Vomiting Last Admin: 11/14/23 16:00 Dose: 4 mg Documented By: JOSE Ondansetron HCl (Ondansetron 4 Mg Odt) 4 mg SL NOW PRN PRN Reason: Nausea And Vomiting Vital Signs Vital signs: Vital Signs - 8 hr 11/14/23 15:15 11/14/23 15:32 11/14/23 15:32 Temperature 97.4 F L Pulse Rate 80 68 Respiratory Rate 20 Blood Pressure 161/69 H 170/76 H Pulse Oximetry 97 94 Oxygen Delivery Method Room Air 11/14/23 16:00 11/14/23 16:00 11/14/23 16:38 Temperature Pulse Rate 70 Respiratory Rate 26 H 31 H Blood Pressure 156/94 H Pulse Oximetry 95 Oxygen Delivery Method 11/14/23 18:00 11/14/23 18:30 11/14/23 19:07 Temperature Pulse Rate 83 84 86 Respiratory Rate 28 H 23 Blood Pressure Pulse Oximetry 91 93 90 L Oxygen Delivery Method 11/14/23 19:30 11/14/23 20:00 11/14/23 21:00 Temperature Pulse Rate 83 84 84 Respiratory Rate 27 H 27 H 28 H Blood Pressure Pulse Oximetry 92 91 95 Oxygen Delivery Method MDM - Neuro Symptoms/Deficit <Srikanth Proctor DO - Jarek Filed: 11/15/23 08:46> Differential Diagnosis Differential diagnosis: Likely subarachnoid hemorrhage, cerebrovascular accident, transient cerebral ischemia and other (Electrolyte abnormality) Medical Records Attestation: I reviewed the patient's medical records. Lab Data Attestation: I reviewed the patient's lab results. 11/15/23 06:07 11/15/23 06:07 Labs: Lab Results 11/14/23 11/14/23 Range/Units 15:35 18:31 WBC 4.8 (4.5-11.0) X10^3/uL RBC 4.86 (4.0-5.2) X10^6/uL Hgb 14.6 (12.0-16.0) g/dL Hct 41.7 (36-46) % MCV 85.8 (80-100) fL MCH 30.0 (26-34) PG MCHC 34.9 (30-36) % RDW 13.3 (11.6-14.8) % Plt Count 290 (150-400) X10^3/uL Neut % (Auto) 47.3 L (50-75) % Lymph % (Auto) 35.5 (25-40) % [place] % (Auto) 12.4 (3-14) % Eos % (Auto) 4.2 H (2-4) % Baso % (Auto) 0.6 (0-2) % Neut # (Auto) 2200 (8733-1274) /uL Lymph # (Auto) 1700 (3743-1698) /uL [place] # (Auto) 600 (0-900) /uL Eos # (Auto) 200 (0-450) /uL Baso # (Auto) 0 (0-100) /uL PT 11.1 (9.4-12.5) SECONDS INR 1.0 (0.9-1.3) APTT 34 (25.1-36.5) SECONDS Sodium 140 (137-145) mmol/L Potassium 3.6 (3.4-5.1) mmol/L Chloride 99 (98-107) mmol/L Carbon Dioxide 37 H (22-32) mmol/L BUN 15 (7-17) mg/dL Creatinine 0.84 (0.52-1.04) mg/dL Estimated GFR > 60 (>60) mL/min BUN/Creatinine Ratio 17.9 (6-22) Glucose 115 H (80-110) mg/dL Calcium 9.6 (8.4-10.2) mg/dL Magnesium 2.0 (1.6-2.3) mg/dL Total Bilirubin 0.6 (0.2-1.3) mg/dL AST 27 (14-36) IU/L ALT 13 (<35) IU/L Alkaline Phosphatase 56 (38-126) U/L Total Creatine Kinase 46 (30-135) U/L Troponin I < 0.012 (0.01-0.034) ng/mL Total Protein 7.5 (6.3-8.2) g/dL Albumin 4.3 (3.5-5.0) g/dL Globulin 3.2 (1.7-4.1) g/dL Albumin/Globulin Ratio 1.3 (1.0-2.8) U Opiates 300ng/mL cut Negative (Negative) Ur Oxycodone Screen Negative (Negative) Urine Methadone Screen Negative (Negative) Ur Barbiturates Screen Negative (Negative) U Tricyclic Antidepress Negative (Negative) Ur Phencyclidine Scrn Negative (Negative) Ur Amphetamines Screen Negative (Negative) U Methamphetamines Scrn Negative (Negative) Ur MDMA Scrn (Ecstasy) Negative (Negative) U Benzodiazepines Scrn Negative (Negative) Urine Cocaine Screen Negative (Negative) U Marijuana (THC) Screen Negative (Negative) Urine pH Normal (Normal) Urine Specific [place] Normal (Normal) Ur Creatinine Normal (Normal) Urine Dip Bedside Urine Glucose Negative Bedside Urine Bilirubin - Negative Bedside Urine Ketone - Negative Urine Specific [place] 1.005 Bedside Urine Occult Blood - Negative Bedside Urine pH 8.0 Bedside Urine Protein - Negative Bedside Urine Urobilinogen - Negative Bedside Urine Nitrite - Negative Bedside Urine Leukocytes - Negative Esterase Imaging Data CT scan - head: Radiologist's Impression: [address] [id number] [address] Scan Report Signed Patient: Phuong Golden MR#: [id number] : 1935 Acct:[id number] Age/Sex: 88 / F Date of Service: 11/14/23 Loc: ED Accession Number: [id number] Procedure: CT head/brain wo con Ordering Provider: Baluyot,Srikanth D.O. PROCEDURE: CT HEAD/BRAIN WO CON INDICATIONS: neuro symptoms greater than 24 hours TECHNIQUE: Noncontrast 4.5 mm thick angled axial sections acquired from the foramen magnum to the vertex, with coronal and sagittal reformats. For radiation dose reduction, the following was used: automated exposure control, adjustment of mA and/or kV according to patient size. COMPARISON: [facility], CT, CT HEAD/BRAIN WO CON, 05/15/2023, 11:49. FINDINGS: Image quality: Diagnostic. CSF spaces: Basal cisterns are patent. No extra-axial fluid collections. The ventricles are symmetric in size and shape. Brain: Area of hypodensity within the left basal ganglia appears new compared to prior. No intracranial bleeds or masses. There is cerebral volume loss for age, with resultant ventricular and sulcal prominence. There are periventricular and deep white matter chronic small vessel ischemic changes. There is intracranial internal carotid artery atherosclerosis. Skull and face: Calvarium and visualized facial bones appear intact, without suspicious lesions. Sinuses: Visualized sinuses and mastoids are clear. IMPRESSION: Small area of hypoattenuation within the left basal ganglia, concerning for subacute infarct. Recommend MRI brain for further evaluation. This is not definitely seen on prior. No acute intracranial hemorrhage. CTA - brain/neck: Radiologist's Impression: PROCEDURE: CT ANGIO HEAD AND NECK INDICATIONS: neuro symptoms greater than 24 hours TECHNIQUE: After the administration of intravenous contrast, 1 mm thick sections acquired from the aortic arch through the [place]. 3-dimensional skqospc-qptrdmnar-qmqiuzygag (MIP) and/or volume rendering reformats were acquired of the central intracranial vasculature and neck separately. For radiation dose reduction, the following was used: automated exposure control, adjustment of mA and/or kV according to patient size. COMPARISON: [facility], CT, CT ANGIO HEAD AND NECK, 05/15/2023, 13:45. FINDINGS: Image quality: Diagnostic. BRAIN: Please refer to separately dictated CT of the head HEAD CT ANGIOGRAPHY: Anterior circulation: Intracranial internal carotid arteries are normal in size and flow with atherosclerotic calcifications. The flow within the paired anterior cerebral arteries is normal and symmetric. The flow within the middle cerebral arteries is normal and symmetric. The anterior communicating artery is seen. No aneurysms are seen. Posterior circulation: Visualized portions of the vertebral arteries demonstrate normal caliber, and join to form a normal appearing basilar artery. origin of the bilateral parts control clerk. Flow within the posterior cerebral arteries is normal and symmetric. No aneurysms are seen. NECK CT ANGIOGRAPHY: Carotid system: The great vessels demonstrate a conventional anatomy as they arise from the aortic arch with atherosclerotic calcifications. The origins of the common carotid arteries appear patent. Moderate stenosis of the left subclavian artery after the takeoff of the vertebral artery. The common carotid arteries demonstrate normal caliber and courses. The bifurcation regions demonstrate atherosclerosis with mild, less than 50 percent stenosis bilaterally, stable compared to prior. The internal carotid arteries demonstrate normal calibers and courses. Posterior circulation: The origins of the vertebral arteries both appear widely patent. The more superior extracranial portions of both vertebral arteries also demonstrate normal courses and calibers. They join to form a normal appearing basilar artery. Soft tissues: Visualized neck soft tissues demonstrate no suspicious abnormalities. Right apical pleural parenchymal scarring with calcifications. Bilateral dependent atelectasis. Bones: No suspicious bony lesions. Visualized cervical spine appears normally aligned. Degenerative changes of the cervical spine. IMPRESSION: No significant intracranial arterial abnormality is seen. No significant abnormality is seen within the arteries of the neck Chest x-ray: Radiologist's Impression: [address] [id number] XRay Report Signed Patient: Phuong Golden MR#: [id number] : 1935 Acct:[id number] Age/Sex: 88 / F Date of Service: 11/14/23 Loc: Accession Number: [id number] Procedure: XR chest 1V Ordering Provider: Srikanth Proctor D.O. PROCEDURE: XR CHEST 1V INDICATIONS: Possible stroke TECHNIQUE: One view of the chest was acquired. COMPARISON: [facility] , XR CHEST 1V, 05/15/2023, 11:40. FINDINGS: Surgical changes and devices: None. Lungs and pleura: Lungs are clear. No pleural effusions or pneumothorax. Mediastinum: Mediastinal contours appear normal. Heart size is normal. Bones and chest wall: No suspicious bony lesions. Overlying soft tissues appear unremarkable. IMPRESSION: No acute cardiopulmonary abnormality is seen. MRI brain: Radiologist's Impression: PROCEDURE: MR HEAD/BRAIN WO CON INDICATIONS: SUBACUTE L BASAL GANGLIA STROKE TECHNIQUE: Non-contrast axial T1 spin echo, axial T2 fast spin echo, sagittal and axial FLAIR, coronal T2 fast spin echo, axial gradient echo, axial diffusion and ADC through the brain. COMPARISON: [facility], MR, MR HEAD/BRAIN WO CON, 05/15/2023, 14:32. FINDINGS: Image quality: Excellent. CSF spaces: Ventricles appear symmetric in size and shape. Basal cisterns are patent. No extra-axial fluid collections. Brain: No intracranial bleeds or mass effects. There is cerebral volume loss for age. There are periventricular and deep white matter chronic small vessel ischemic changes. Brainstem appears normal. Diffusion-weighted images demonstrate hyperdensity within the posterior limb of the internal capsule with corresponding hypointense ADC signal. Normal intravascular flow voids are present. Old right occipital infarct. Skull and face: Calvarial bone marrow is normal in signal. Orbits are normal. Sinuses: Sinuses and mastoids are clear. IMPRESSION: Acute/subacute left internal capsule ischemia without superimposed hemorrhage. Atrophy and chronic microvascular ischemic changes are present. MDM Narrative Medical decision making narrative: Patient is a 88-year-old female with a past medical history of hypertension CVA comes into the ED from home for evaluation of ?headache? she states that she was having a dull diffuse headache yesterday, states this is completely resolved. She states that her daughter was worried that she might have had another stroke given she had similar symptoms of this in the past came into the emergency department here was diagnosed with a stroke. At time of evaluation patient is not complaining of any headache visual disturbances NIH of 0 at time of initial evaluation. Patient was given premedication for IV contrast allergy with prednisone and Benadryl. Tolerated CT scan appropriately. Patient was signed out to oncoming provider pending consult with Neurology given CT scan showing acute versus subacute CVA of the left basal ganglia. Nontoxic appearing patient brought in by family out of concerns for memory loss. Patient denies pain or other complaints to me on exam. NIH score 0 on arrival. Patient does have fairly recent history of right DIAMOND CUTTER stroke, she denies any residual deficits. Record review shows that patient had echocardiogram and MRI at that time. She was supposed to be discharged on dual antiplatelet therapy and a statin, however patient shows me her medication list and it only includes estradiol, lisinopril, atenolol. CT shows possible subacute infarct left basal ganglia. Call placed to [facility] neurology for recommendations. MRI brain ordered noncontrast for further assessment. Discussed with Dr. Joseph of neurolgogy at [facility]. The MRI was reviewed. The patient's symptoms and MRI appear most consistent with microvascular ischemia, however can not completely rule out embolic event. She recommended dual antiplatelet therapy for 21 days as well as high-intensity statin, as well as admission for telemetry, echocardiogram, with suggestions of Holter monitor placement at discharge to rule out atrial fibrillation. <Emy Thakkar MD - Last Filed: 11/14/23 21:48> Lab Data Labs: Lab Results 11/14/23 11/14/23 Range/Units 15:35 18:31 WBC 4.8 (4.5-11.0) X10^3/uL RBC 4.86 (4.0-5.2) X10^6/uL Hgb 14.6 (12.0-16.0) g/dL Hct 41.7 (36-46) % MCV 85.8 (80-100) fL MCH 30.0 (26-34) PG MCHC 34.9 (30-36) % RDW 13.3 (11.6-14.8) % Plt Count 290 (150-400) X10^3/uL Neut % (Auto) 47.3 L (50-75) % Lymph % (Auto) 35.5 (25-40) % [place] % (Auto) 12.4 (3-14) % Eos % (Auto) 4.2 H (2-4) % Baso % (Auto) 0.6 (0-2) % Neut # (Auto) 2200 (1456-8472) /uL Lymph # (Auto) 1700 (5993-4390) /uL [place] # (Auto) 600 (0-900) /uL Eos # (Auto) 200 (0-450) /uL Baso # (Auto) 0 (0-100) /uL PT 11.1 (9.4-12.5) SECONDS INR 1.0 (0.9-1.3) APTT 34 (25.1-36.5) SECONDS Sodium 140 (137-145) mmol/L Potassium 3.6 (3.4-5.1) mmol/L Chloride 99 (98-107) mmol/L Carbon Dioxide 37 H (22-32) mmol/L BUN 15 (7-17) mg/dL Creatinine 0.84 (0.52-1.04) mg/dL Estimated GFR > 60 (>60) mL/min BUN/Creatinine Ratio 17.9 (6-22) Glucose 115 H (80-110) mg/dL Calcium 9.6 (8.4-10.2) mg/dL Magnesium 2.0 (1.6-2.3) mg/dL Total Bilirubin 0.6 (0.2-1.3) mg/dL AST 27 (14-36) IU/L ALT 13 (<35) IU/L Alkaline Phosphatase 56 (38-126) U/L Total Creatine Kinase 46 (30-135) U/L Troponin I < 0.012 (0.01-0.034) ng/mL Total Protein 7.5 (6.3-8.2) g/dL Albumin 4.3 (3.5-5.0) g/dL Globulin 3.2 (1.7-4.1) g/dL Albumin/Globulin Ratio 1.3 (1.0-2.8) U Opiates 300ng/mL cut Negative (Negative) Ur Oxycodone Screen Negative (Negative) Urine Methadone Screen Negative (Negative) Ur Barbiturates Screen Negative (Negative) U Tricyclic Antidepress Negative (Negative) Ur Phencyclidine Scrn Negative (Negative) Ur Amphetamines Screen Negative (Negative) U Methamphetamines Scrn Negative (Negative) Ur MDMA Scrn (Ecstasy) Negative (Negative) U Benzodiazepines Scrn Negative (Negative) Urine Cocaine Screen Negative (Negative) U Marijuana (THC) Screen Negative (Negative) Urine pH Normal (Normal) Urine Specific [place] Normal (Normal) Ur Creatinine Normal (Normal) Urine Dip Bedside Urine Glucose Negative Bedside Urine Bilirubin - Negative Bedside Urine Ketone - Negative Urine Specific [place] 1.005 Bedside Urine Occult Blood - Negative Bedside Urine pH 8.0 Bedside Urine Protein - Negative Bedside Urine Urobilinogen - Negative Bedside Urine Nitrite - Negative Bedside Urine Leukocytes - Negative Esterase MDM Narrative Medical decision making narrative: Nontoxic appearing patient brought in by family out of concerns for memory loss. Patient denies pain or other complaints to me on exam. NIH score 0 on arrival. Patient does have fairly recent history of right DIAMOND CUTTER stroke, she denies any residual deficits. Record review shows that patient had echocardiogram and MRI at that time. She was supposed to be discharged on dual antiplatelet therapy and a statin, however patient shows me her medication list and it only includes estradiol, lisinopril, atenolol. CT shows possible subacute infarct left basal ganglia. Call placed to [facility] neurology for recommendations. MRI brain ordered noncontrast for further assessment. Discussed with Dr. Joseph of neurolgogy at [facility]. The MRI was reviewed. The patient's symptoms and MRI appear most consistent with microvascular ischemia, however can not completely rule out embolic event. She recommended dual antiplatelet therapy for 21 days as well as high-intensity statin, as well as admission for telemetry, echocardiogram, with suggestions of Holter monitor placement at discharge to rule out atrial fibrillation. Discharge Plan Departure Patient Disposition: Admitted as Observation Clinical Impression: Acute stroke due to ischemia Admit Date/Time: 11/14/23 21:43 Admit Provider: Heladio Castro
[2023-11-14 16:03] LABS: Prothrombin Time 11.1 SECONDS (9.4-12.5)
[2023-11-14 16:05] LABS: PTT Partial Thromboplastin Tim 34 SECONDS (25.1-36.5)
[2023-11-14 16:15] LABS: Alanine Aminotransferase 13 IU/L (<35); Albumin 4.3 g/dL (3.5-5.0); Albumin Globulin Ratio 1.3 (1.0-2.8); Alkaline Phosphatase 56 U/L (38-126); Aspartate Aminotransferase 27 IU/L (14-36); BUN Creatinine Ratio 17.9 (6-22); Bilirubin Total 0.6 mg/dL (0.2-1.3); Blood Urea Nitrogen 15 mg/dL (7-17); Calcium 9.6 mg/dL (8.4-10.2); Carbon Dioxide 37 mmol/L (22-32); Chloride 99 mmol/L (98-107); Creatine Kinase 46 U/L (30-135); Estimated Glomerular Filt Rate > 60 mL/min (>60); Globulin 3.2 g/dL (1.7-4.1); Glucose 115 mg/dL (80-110); HEMOLYSIS < 15 (0-50); Potassium 3.6 mmol/L (3.4-5.1); Sodium 140 mmol/L (137-145); Total Protein 7.5 g/dL (6.3-8.2)
[2023-11-14 16:26] LABS: Troponin I < 0.012 ng/mL (0.01-0.034)
--- NOTE | 2023-11-14 18:27 | DI.MRI.S_ITS ---
PROCEDURE: MR HEAD/BRAIN WO CON INDICATIONS: SUBACUTE L BASAL GANGLIA STROKE TECHNIQUE: Non-contrast axial T1 spin echo, axial T2 fast spin echo, sagittal and axial FLAIR, coronal T2 fast spin echo, axial gradient echo, axial diffusion and ADC through the brain. COMPARISON: [facility], MR, MR HEAD/BRAIN WO CON, 05/15/2023, 14:32. FINDINGS: Image quality: Excellent. CSF spaces: Ventricles appear symmetric in size and shape. Basal cisterns are patent. No extra-axial fluid collections. Brain: No intracranial bleeds or mass effects. There is cerebral volume loss for age. There are periventricular and deep white matter chronic small vessel ischemic changes. Brainstem appears normal. Diffusion-weighted images demonstrate hyperdensity within the posterior limb of the internal capsule with corresponding hypointense ADC signal. Normal intravascular flow voids are present. Old right occipital infarct. Skull and face: Calvarial bone marrow is normal in signal. Orbits are normal. Sinuses: Sinuses and mastoids are clear. IMPRESSION: Acute/subacute left internal capsule ischemia without superimposed hemorrhage. Atrophy and chronic microvascular ischemic changes are present. Dictated by: Ann Garcia M.D. on 11/14/2023 at 19:47 Approved by: Ann Garcia M.D. on 11/14/2023 at 19:49
[2023-11-14 18:39] LABS: Ur Creatinine Normal (Normal); Ur Specific Gravity Normal (Normal); Urine Amphetamines Negative (Negative); Urine Barbiturates Negative (Negative); Urine Benzodiazepines Negative (Negative); Urine Cocaine Negative (Negative); Urine MDMA Negative (Negative); Urine Methadone Negative (Negative); Urine Methamphetamines Negative (Negative); Urine Opiates Negative (Negative); Urine Oxycodone Negative (Negative); Urine Phencyclidine Negative (Negative); Urine THC Negative (Negative); Urine Tricyclic Antidepressant Negative (Negative); Urine pH Normal (Normal)
[2023-11-14] MEDS: ASPIRIN EC 325 MG TABLET PO (19:06)
[2023-11-14] MEDS: CLOPIDOGREL 75 MG TABLET PO (21:55)
[2023-11-14] MEDS: ATORVASTATIN 20 MG TABLET 80 MG PO (21:56)
[2023-11-14] MEDS: SODIUM CHLORIDE 0.9% 1,000 ML 75 ML IV (22:50)
--- NOTE | 2023-11-15 03:06 | PM.HP.1 ---
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 Per the patient report, the patient started to have acute onset of headache that started yesterday. The patient?s daughter was worried that she might have another stroke. This was similar to the symptoms she had when she was diagnosed with her prior stroke. The patient, however, denies any visual changes, slurred speech, focal weakness, or numbness. Patient also denies any fever, chills, nausea, vomiting, chest pain, shortness of breath, or diarrhea. By the time the patient arrived to our ER, the patient states that her headache has resolved. In our emergency room, the patient was hemodynamically stable. Per our ER physician, the patient NIH score was zero. CT of the head was done, which shows possible subacute infarct in the left basal ganglia. Neuro stroke from [facility] was consulted and recommended a brain MRI for further evaluation.? MRI appear most consistent with microvascular however it cannot completely rule out embolic event. The neurologist recommended a dual plate therapy for 21 days with high intensity statin. It is also recommend the patient admitted overnight observation with telemetry and obtain an echocardiogram with bubble study in the morning. A Holter monitor placement? should be ordered at discharge to rule out atrial fibrillation. 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 pt lives alone snug pushpa every day -- checks in with them by 930 am every day. 04/2023 Meds Home Medications and Allergies Home Medications Medication Instructions Recorded Confirmed Type lisinopril 40 mg tablet 40 mg PO DAILY #90 tabs 12/27/21 11/14/23 Rx clopidogrel 75 mg tablet 75 mg PO DAILY 30 days #90 tabs 05/24/23 11/14/23 Rx hydrochlorothiazide 12.5 mg capsule 12.5 mg PO DAILY #90 caps 10/04/23 11/14/23 Rx atenolol 50 mg tablet 50 mg PO DAILY 11/14/23 11/14/23 History Allergies Allergy/AdvReac Type Severity Reaction Status Date / Time Iodine and Iodide Containing Allergy Mild Vomiting Verified 08/08/23 14:02 Produc morphine Allergy Mild Verified 08/08/23 14:02 Review of Systems Review of Systems ROS: Yes All systems reviewed with the patient and are negative except as otherwise documented Exam Vital Signs (past 8 hours): - 11/14/23 19:07 11/14/23 19:30 11/14/23 20:00 Temperature Pulse Rate 86 83 84 Respiratory Rate 27 H 27 H Blood Pressure Pulse Oximetry 90 L 92 91 Oxygen Delivery Method 11/14/23 21:00 11/14/23 21:23 11/14/23 21:30 Temperature Pulse Rate 84 89 Respiratory Rate 28 H 22 Blood Pressure 164/93 H Pulse Oximetry 95 94 Oxygen Delivery Method Room Air 11/14/23 21:44 11/14/23 22:00 11/14/23 22:00 Temperature 97.1 F L Pulse Rate 90 97 H Respiratory Rate 19 24 Blood Pressure 183/91 H 216/102 H Pulse Oximetry 96 94 Oxygen Delivery Method 11/14/23 22:26 Temperature Pulse Rate 89 Respiratory Rate 19 Blood Pressure 152/78 H Pulse Oximetry 91 Oxygen Delivery Method Oxygen Delivery Method Room Air Narrative Exam Narrative: GENERAL: The patient is not in any acute distressed. Awake and alert. HEENT: Nonicteric sclerae, PERRLA, EOMI. Oropharynx clear. Moist mucous membranes. Conjunctivae appear well perfused. HEART: Regular rate and rhythm without murmurs. No lower extremities edema. LUNGS: Clear to auscultation bilaterally. No wheezing, crackles or rhonchi ABDOMEN: Soft, positive bowel sounds, nontender. SKIN: No rash, no excessive bruising, petechiae, or purpura. NEUROLOGIC: AxO x 3. Cranial nerves II-XII intact without motor/sensory deficit. Objective Labs 11/14/23 15:35 11/14/23 15:35 Labs: Laboratory Results - last 24 hr 11/14/23 11/14/23 15:35 18:31 WBC 4.8 RBC 4.86 Hgb 14.6 Hct 41.7 MCV 85.8 MCH 30.0 MCHC 34.9 RDW 13.3 Plt Count 290 Neut % (Auto) 47.3 L Lymph % (Auto) 35.5 [place] % (Auto) 12.4 Eos % (Auto) 4.2 H Baso % (Auto) 0.6 Neut # (Auto) 2200 Lymph # (Auto) 1700 [place] # (Auto) 600 Eos # (Auto) 200 Baso # (Auto) 0 PT 11.1 INR 1.0 APTT 34 Sodium 140 Potassium 3.6 Chloride 99 Carbon Dioxide 37 H BUN 15 Creatinine 0.84 Estimated GFR > 60 BUN/Creatinine Ratio 17.9 Glucose 115 H Calcium 9.6 Magnesium 2.0 Total Bilirubin 0.6 AST 27 ALT 13 Alkaline Phosphatase 56 Total Creatine Kinase 46 Troponin I < 0.012 Total Protein 7.5 Albumin 4.3 Globulin 3.2 Albumin/Globulin Ratio 1.3 U Opiates 300ng/mL cut Negative Ur Oxycodone Screen Negative Urine Methadone Screen Negative Ur Barbiturates Screen Negative U Tricyclic Antidepress Negative Ur Phencyclidine Scrn Negative Ur Amphetamines Screen Negative U Methamphetamines Scrn Negative Ur MDMA Scrn (Ecstasy) Negative U Benzodiazepines Scrn Negative Urine Cocaine Screen Negative U Marijuana (THC) Screen Negative Urine pH Normal Urine Specific [place] Normal Ur Creatinine Normal Assessment & Plan Assessment & Plan narrative: Possible CVA. Admit the patient to medical telemetry under observation. As above, MRI of the brain shows possible microvascular ischemia but cannot completely rule out embolic event. Patient is asymptomatic at this time and is neurologically intact. Continue dual anti-platelet therapy for 21 days with high intensity statin.? Will continue to monitor patient for any fibrillation on telemetry. Will obtain echocardiogram with bubble study in the morning. At time of discharge, neurology recommended that the patient be placed on Holter monitor to rule out atrial fibrillation. Also lipid profile and A1c ordered. PT/OT. Hypertension. Monitor blood pressure and will resume home medication accordingly. DVT prophylaxis heparin SQ Code status full code Disposition likely home in 1 to 2 days Time-Based Coding :: [TOTAL MINUTES] spent with patient and on the chart (including review of chart, obtaining history, exam, reviewing outside data, placing orders, documenting exam and treatment plan, and counseling patient) on [DATE].
[2023-11-15 03:08] VITALS: BP 139/76; PULSE 84; RESP 17; TEMP 36.6; O2SAT 94
--- NOTE | 2023-11-15 07:49 | PM.PN.1 ---
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 Per the patient report, the patient started to have acute onset of headache that started yesterday. The patient?s daughter was worried that she might have another stroke. This was similar to the symptoms she had when she was diagnosed with her prior stroke. The patient, however, denies any visual changes, slurred speech, focal weakness, or numbness. Patient also denies any fever, chills, nausea, vomiting, chest pain, shortness of breath, or diarrhea. By the time the patient arrived to our ER, the patient states that her headache has resolved. ED course: In our emergency room, the patient was hemodynamically stable. Per our ER physician, the patient NIH score was zero. CT of the head was done, which shows possible subacute infarct in the left basal ganglia. Neuro stroke from [facility] was consulted and recommended a brain MRI for further evaluation.? MRI appear most consistent with microvascular however it cannot completely rule out embolic event. The neurologist recommended a dual plate therapy for 21 days with high intensity statin. It is also recommend the patient admitted overnight observation with telemetry and obtain an echocardiogram with bubble study in the morning. A Holter monitor placement? should be ordered at discharge to rule out atrial fibrillation. Exam Vital Signs (past 8 hours): - 11/15/23 03:08 Temperature 97.9 F Pulse Rate 84 Respiratory Rate 17 Blood Pressure 139/76 Pulse Oximetry 94 Oxygen Delivery Method Room Air Narrative Exam Narrative: NAD, alert and oriented. Fluent speech. Lungs are clear, normal rate and effort. Heart is regular, no murmur gallop or rub. Abdomen is soft, non distended. Extremities are free of edema. Objective ECG Impression: Normal sinus rhythm Rightward axis Imaging Multiple studies: : Radiologist's impression: MRI brain: Acute/subacute left internal capsule ischemia without superimposed hemorrhage. Atrophy and chronic microvascular ischemic changes are present. Head and neck CTA: No significant intracranial arterial abnormality is seen. No significant abnormality is seen within the arteries of the neck. Brain CT: Small area of hypoattenuation within the left basal ganglia, concerning for subacute infarct. Recommend MRI brain for further evaluation. This is not definitely seen on prior. No acute intracranial hemorrhage. Chest x-ray: No acute cardiopulmonary abnormality is seen. Labs 11/14/23 15:35 11/14/23 15:35 Labs: Laboratory Results - last 24 hr 11/14/23 11/14/23 15:35 18:31 WBC 4.8 RBC 4.86 Hgb 14.6 Hct 41.7 MCV 85.8 MCH 30.0 MCHC 34.9 RDW 13.3 Plt Count 290 Neut % (Auto) 47.3 L Lymph % (Auto) 35.5 [place] % (Auto) 12.4 Eos % (Auto) 4.2 H Baso % (Auto) 0.6 Neut # (Auto) 2200 Lymph # (Auto) 1700 [place] # (Auto) 600 Eos # (Auto) 200 Baso # (Auto) 0 PT 11.1 INR 1.0 APTT 34 Sodium 140 Potassium 3.6 Chloride 99 Carbon Dioxide 37 H BUN 15 Creatinine 0.84 Estimated GFR > 60 BUN/Creatinine Ratio 17.9 Glucose 115 H Calcium 9.6 Magnesium 2.0 Total Bilirubin 0.6 AST 27 ALT 13 Alkaline Phosphatase 56 Total Creatine Kinase 46 Troponin I < 0.012 Total Protein 7.5 Albumin 4.3 Globulin 3.2 Albumin/Globulin Ratio 1.3 U Opiates 300ng/mL cut Negative Ur Oxycodone Screen Negative Urine Methadone Screen Negative Ur Barbiturates Screen Negative U Tricyclic Antidepress Negative Ur Phencyclidine Scrn Negative Ur Amphetamines Screen Negative U Methamphetamines Scrn Negative Ur MDMA Scrn (Ecstasy) Negative U Benzodiazepines Scrn Negative Urine Cocaine Screen Negative U Marijuana (THC) Screen Negative Urine pH Normal Urine Specific [place] Normal Ur Creatinine Normal [facility] Medical History Hyperlipidemia, mixed Right ACL tear Tear of meniscus of right knee Epidural abscess Iron deficiency anemia Cerebral atherosclerosis Primary open angle glaucoma 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 pt lives alone snug pushpa every day -- checks in with them by 930 am every day. 04/2023 Assessment & Plan Assessment & Plan narrative: 1. Basal ganglia CVA. Present of admission and active. -Admit the patient to medical telemetry under observation. As above, MRI of the brain shows possible microvascular ischemia but cannot completely rule out embolic event. Patient is asymptomatic at this time and is neurologically intact. Continue dual anti-platelet therapy for 21 days with high intensity statin.? Will continue to monitor patient for any fibrillation on telemetry. Will obtain echocardiogram with bubble study in the morning. At time of discharge, neurology recommended that the patient be placed on Holter monitor to rule out atrial fibrillation. Also lipid profile and A1c ordered. PT/OT. 2. Hypertension. Present of admission and active. -Monitor blood pressure and will resume home medication accordingly. DVT prophylaxis heparin SQ Code status full code Time-Based Coding :: [TOTAL MINUTES] spent with patient and on the chart (including review of chart, obtaining history, exam, reviewing outside data, placing orders, documenting exam and treatment plan, and counseling patient) on [DATE].
[2023-11-15 08:19] LABS: Add Manual Diff / Slide Review NO; Basophils Absolute Auto 0 /uL (0-100); Basophils Percent Auto 0.2 % (0-2); Eosinophils Absolute Auto 0 /uL (0-450); Hematocrit 38.9 % (36-46); Hemoglobin 13.5 g/dL (12.0-16.0); Lymphocytes Absolute Auto 800 /uL (1100-4500); Lymphocytes Percent Auto 15.3 % (25-40); Mean Corpuscular HGB Conc 34.6 % (30-36); Mean Corpuscular Hemoglobin 29.5 PG (26-34); Mean Corpuscular Volume 85.5 fL (80-100); Monocytes Absolute Auto 100 /uL (0-900); Monocytes Percent Auto 2.8 % (3-14); Neutrophils Absolute Auto 4000 /uL (1500-7000); Neutrophils Percent Auto 81.7 % (50-75); Platelet Count 265 X10^3/uL (150-400); Red Blood Cell Count 4.56 X10^6/uL (4.0-5.2); Red Cell Distribution Width 12.9 % (11.6-14.8); White Blood Cell Count 4.9 X10^3/uL (4.5-11.0)
[2023-11-15 08:34] LABS: BUN Creatinine Ratio 23.1 (6-22); Blood Urea Nitrogen 15 mg/dL (7-17); Carbon Dioxide 30 mmol/L (22-32); Chloride 102 mmol/L (98-107); Cholesterol 260 mg/dL (140-199); Estimated Glomerular Filt Rate > 60 mL/min (>60); Glucose 129 mg/dL (80-110); HDL Cholesterol 57 mg/dL (40-60); HEMOLYSIS 17 (0-50); LDL Cholesterol Calculated 191 mg/dL (<100); Potassium 4.1 mmol/L (3.4-5.1); Sodium 136 mmol/L (137-145); Triglycerides 62 mg/dL (35-150)
[2023-11-15 08:41] LABS: Hemoglobin A1C% w Est Avg Glu 5.5 % (4.0-6.0)
[2023-11-15 08:45] VITALS: BP 133/72; PULSE 93; RESP 19; TEMP 36.5; O2SAT 94
[2023-11-15 08:59] VITALS: BP 133/72; PULSE 93
[2023-11-15] MEDS: lisinopriL 20 MG TABLET 40 MG PO (08:59)
[2023-11-15] MEDS: CLOPIDOGREL 75 MG TABLET PO (08:59)
[2023-11-15] MEDS: ASPIRIN EC 81 MG TABLET PO (08:59)
[2023-11-15] MEDS: atenoloL 50 MG TABLET PO (09:00)
[2023-11-15] MEDS: HEPARIN 5,000 UNIT/ML VIAL 5000 UNIT SUBCUT (09:10)
--- NOTE | 2023-11-15 09:35 | PT.IIE ---
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 Osteomyelitis of vertebra, site unspecified Primary open angle glaucoma Right ACL tear Tear of meniscus of right knee Physical Therapy Inpatient Evaluation/Re-Eval M1 PT/OT-IP Prior Functional Status Start: 11/15/23 12:17 Freq: NEEDED Status: Discharge Protocol: Document 11/15/23 09:35 AB (Rec: 11/15/23 12:32 AB [id number]) Medical Review Prior Functional Status Medical History Reviewed Yes Communication able to make needs known; with slight delay with responses Mobility and Gait pt stated that she was independent with all mobilities and ambulation without AD Social History Household Members none Living Arrangements House Number of Stairs To Enter/Railing? pt stated that she will be staying at her daughter's house upon d/c for a few days: has 4 steps R rail ascending Home Environment Standard Height Toilet,Walk in Shower Home Equipment Front Wheel Walker,Straight Cane,Hand Held Shower M2 PT-IP Current Condition Start: 11/15/23 12:17 Freq: NEEDED Status: Discharge Protocol: Document 11/15/23 09:35 AB (Rec: 11/15/23 12:32 AB [id number]) Physical Therapy Current Condition Current Condition Evaluation Date 11/15/23 Treatment Diagnosis L CVA; difficulty in walking Onset Date 11/14/23 M3 PT-IP Subjective Start: 11/15/23 12:17 Freq: NEEDED Status: Discharge Protocol: Document 11/15/23 09:35 AB (Rec: 11/15/23 12:32 AB [id number]) Subjective Physical Therapy Visit Type Type Initial Evaluation Visit Start Time 09:35 Visit Stop Time 10:10 Number of SAW SETTER Visits 0 Physical Therapy Visit Comments Patient Comments agreeable to do PT Therapy Pain Assessment Pain Present Pain Present Denied Pain M4 PT-IP Mobility and Gait Start: 11/15/23 12:17 Freq: NEEDED Status: Discharge Protocol: Document 11/15/23 09:35 AB (Rec: 11/15/23 12:32 AB [id number]) PT-Bed Mobility Assessment Supine to Sit Supine to Sit Independent PT-Transfer Assessment Sit to and From Stand Sit to and from Stand Standby Assistance,1 Person Assistance,Use of Upper Extremities Equipment Transfer Assistive Device None,Gait Belt Orthotic/Prosthetic Devices or Brace: Yes Transfers Transfer Destination Chair,Toilet Transfer Technique ambulated Transfer Ability Level of Assist Contact Guard Assistance, Minimal Assistance,1 Person Assistance,Use of Upper Extremities Comments Mobility Comments pt supine in bed and agreeable to do PT. obtained PLOF and home set up from pt. BP: 133/ 83. pt completed supine to sit independent. completed sit to stand SBA and ambulated in room ~ 20 ft without AD CGA to min A. pt with slight increase of L lateral LOB and cues for RLE steadiness. pt tends to reach and hold on to wall/chair for support. pt sat back on the chair. informed pt not to get up without AD while PT gets a SPC for pt to use. found pt to be using the toilet and got up by herself. pt ambulated from the toilet without AD towards the sink CGA with pt holding on to the wall. pt was able to maintain standing by the sink SBA while completing handwashing. pt ambulated back to the chair CGA. educated pt on SPC use. pt completed sit to stand from the chair SBA and ambulated with SPC ~ 150 ft CGA and cues . pt completed up/down steps using R rail + SPC CGA. pt ambulated back to her room using SPC SBA to CGA. pt can be impulsive. pt sat back on chair. educated pt on safety and use of an AD at home. pt stated that she has a FWW and maybe a SPC. informed pt to use an AD for safety and will need outpt PT for strengthening and balance training. pt agreed. Gait Assessment Gait Gait Assistance Required: Contact Guard Assist,Minimum Assistance Distance (Feet) 150 Able to Maintain Weight Bearing Status Yes During Gait Assistive Devices Assistive Device None,Gait Belt,Straight Cane Orthotic/Prosthetic Devices or Brace: No Gait Deviations General Gait Pattern Antalgic Factors Limiting Gait Function Factors Limiting Gait Function Decreased Activity Tolerance, Decreased Strength,Difficulty Following Directions, Incoordination,Limited Range of Motion,Poor Balance,Poor Safety Awareness Stair Climbing Assessment Evaluation Level of Assist On Stairs Contact Guard Assistance Devices Stair Climbing Assistive Devices Straight Cane,Right Railing Technique/Endurance Stair Climbing Direction Ascend and Descend Stair Climbing Technique Step to Step Number of Steps Climbed 3 Query Text: Stair Climbing Set # Repetitions (reps) 1 PT-Balance Assessment Sitting Balance and Reactions Static Sitting Balance Ability Normal Dynamic Sitting Balance Ability Good Standing Balance and Reactions Static Standing Balance Ability Fair Dynamic Standing Balance Ability Fair Device Used without AD M5 PT-IP Objective Assessments Start: 11/15/23 12:17 Freq: NEEDED Status: Discharge Protocol: Document 11/15/23 09:35 AB (Rec: 11/15/23 12:32 AB [id number]) Orientation Orientation/Cognition Level of Alertness Alert Orientation Name,Place,Situation Safety Awareness Decreased Safety Awareness Memory Description Short Term Impaired Comments pt with delay in responding to questions Gross Range of Motion Lower Extremity ROM Assessment Within Functional Limits Strength Lower Extremity Strength Assessment Right Impaired Hip 4-/5 Knee 4-/5 Coordination Assessment Gross Coordination Gross Coordination WNL Sensation Assessment Sensation Gross Sensation WNL Muscle Tone Muscle Tone WNL Yes M6 PT-IP Treatment Start: 11/15/23 12:17 Freq: NEEDED Status: Discharge Protocol: Document 11/15/23 09:35 AB (Rec: 11/15/23 12:32 AB [id number]) Physical Therapy Treatment Education Education Provided Safety M7 PT-IP Assessment and Plan Start: 11/15/23 12:17 Freq: NEEDED Status: Discharge Protocol: Document 11/15/23 09:35 AB (Rec: 11/15/23 12:32 AB [id number]) PT Summary Assessment and Plan Potential Rehabilitation Potential Fair Status of Condition at Evaluation Evolving Summary Impairments Pain,ROM,Strength,Balance, Coordination,Sensation,Tone, Cognition,Bed Mobility, Transfers,Gait,Activity Tolerance Assessment Summary pt is an 88 y/o F who presented to the ED with a headache. pt admitted for L CVA. pt requiring CGA to min A with ambulation without AD and tends to reach for wall/ chair for support. presents with unsteady gait with slight LOB. recommending use of an AD at this time. pt ambulated with SPC requiring CGA. pt will need assistance at home for safety and will go to her daughter's house at this time. pt also will benefit from outpt PT. Goals Bed Mobility Goal Independent Transfer Goal Independent,Cane Gait Goal Independent,Cane Gait Distance 200 Other Goals up/down 3 steps R rail ascending SBA Days to Meet Goals 5 Frequency of Treatment Frequency Of Treatment Once a Day Treatment Plan Physical Therapy Treatment Plan Bed Mobility Training,Transfer Training,Gait Training, Therapeutic Exercise,Balance Retraining,Post Op Education, Discharge Planning,Hot or Cold Pack,Neuromuscular Re-ed, Coordination Retraining,Manual Therapy Precautions Other Precautions falls Recommendations To Nursing Amount of Assist Needed 1 Person Assist Discharge Recommendations PT Discharge Recommendations Home with Assistance, Outpatient PT Transportation Needs at Discharge Private Vehicle
--- NOTE | 2023-11-15 10:54 | CM.DANOTE ---
DCP Assessment Note: Pt is a 88yo female, resident of [facility], is admitted for possible TIA. Pt lives in a house alone but is currently staying with her daughter. Pt's Primary Care Provider is Dr. Aditya Jiang and insurance is Medicare and [employer]. Reviewed chart and team rounds for pt's medical status and initial discharge needs. DCP met w/patient at bedside; introduced self and role. Patient was found in bed, alert and oriented, cooperative with assessment. Pt confirmed living situation and good support in daughter/extended family. Pt expressed preference in discharging home, declining offer for home health or other services in the community. Pt agreeable to PT evaluation prior to being cleared for discharge. Plan: Anticipating discharge home with daughter to transport, pending PT eval clearance. CM team will follow closely for coordination of discharge plans. CORINNE Catherine Discharge Planning/Care Management Advanced directive, confirm from FAMILY Start: 11/14/23 22:26 Freq: Q24H Status: Active Protocol: Document 11/14/23 22:26 (Rec: 11/15/23 00:55 [id number]) Advance Directive, confirm on record Time 23:00 Person contacted pt Copy received No CM Discharge Assessment Start: 11/15/23 10:52 Freq: Status: Active Protocol: Document 11/15/23 10:52 MW (Rec: 11/15/23 10:54 MW [id number]) Discharge Planning Assessment Assigned Restorative Art Embalmer ORESTES Casey DPOA/Assigned Designee Name Dominick Tabares Contact Information [phone] Advance Directives? Yes Advance Directives on File No History Provided By Patient,Medical Record Has Patient been admitted in last 30 No days? Prior Living Arrangements House Comment Lives on [facility]. Household Members none Type of transporation used prior to Drives own vehicle admit Independent with ADL's Yes Is patient alert and oriented? Yes Caregiver for Another No Comment Home with family. Barriers to Discharge No Discharge Plan Home Transportation Arrangement Daughter to transport in [place]. Referrals Initiated None needed Whiteboard Updated in Patient Room with Yes name and ext. # of Restorative Art Embalmer Comment [phone] Please Provide Date Initial DC 11/15/23 Assessment Was Performed Next Review Type Continued Stay Review
--- NOTE | 2023-11-15 11:19 | PM.DS.1 ---
History of Present Illness History of Present Illness Chief complaint: Poss TIA Narrative: From H&P: 88 year-old female with past medical history of CVA involving right ANESTHESIOLOGY FELLOW distribution with cortical occipital infarct and hypertension presents with a headache and concern for another stroke. Per the patient report, the patient started to have acute onset of headache that started yesterday. The patient?s daughter was worried that she might have another stroke. This was similar to the symptoms she had when she was diagnosed with her prior stroke. The patient, however, denies any visual changes, slurred speech, focal weakness, or numbness. Patient also denies any fever, chills, nausea, vomiting, chest pain, shortness of breath, or diarrhea. By the time the patient arrived to our ER, the patient states that her headache has resolved. In our emergency room, the patient was hemodynamically stable. Per our ER physician, the patient NIH score was zero. CT of the head was done, which shows possible subacute infarct in the left basal ganglia. Neuro stroke from [facility] was consulted and recommended a brain MRI for further evaluation.? MRI appear most consistent with microvascular however it cannot completely rule out embolic event. The neurologist recommended a dual plate therapy for 21 days with high intensity statin. It is also recommend the patient admitted overnight observation with telemetry and obtain an echocardiogram with bubble study in the morning. A Holter monitor placement? should be ordered at discharge to rule out atrial fibrillation. Discharge Providers Provider Date of admission: 11/14/23 21:43 Discharge Date: 11/15/23 Primary care physician: Aditya Jiang MD Consults: 11/14/23 21:58 Consult to Occupational Therapy Evaluate & Treat Comment: Physician Instructions: Evaluate and treat Consult to Physical Therapy Evaluate & Treat Comment: Physician Instructions: Evaluate and Treat Discharge provider: Oscar Girard MD Summary Hospital Course Discharge Diagnosis: 1. Basal gangia CVA. Present on admission and active. 2. Hypertension. Present on admission and active. 3. Mild cognitive impairment. Present on admission and active. Hospital Course: The patient is an 88-year-old female with a history of a previous stroke. She presented with a headache and concern for new stroke. Imaging indicated a basal ganglion lacunar stroke. She was discussed with Neurology, and started on dual antiplatelet therapy for duration of 21 days as well as high dose atorvastatin. In the day of discharge she was at or near her baseline. She was have mild cognitive impairment which she recognizes. She was able to ambulate safely with a walker. She was in [facility], near her son. She does live independently. She will stay with him for a period of time after discharge and they were both very comfortable returning home and [place]. [place]charge Cognitive/behavioral status at discharge: at baseline, oriented Functional status at discharge: uses cane/walker Overall status at discharge: patient is back to baseline Time Spent with Patient Time spent: Greater than 30 minutes Exam Vital Signs (past 8 hours): - 11/15/23 08:45 11/15/23 08:59 Temperature 97.7 F Pulse Rate 93 H 93 H Respiratory Rate 19 Blood Pressure 133/72 133/72 Pulse Oximetry 94 Oxygen Flow Rate 0 Oxygen Delivery Method Room Air Oxygen Flow Rate 0 Narrative Exam Narrative: NAD, alert and oriented. Fluent speech. Lungs are clear, normal rate and effort. Heart is regular, no murmur gallop or rub. Abdomen is soft, non distended. Extremities are free of edema. Neuro: Alert and oriented x3, cranial nerves are intact. Negative pronator drift. No leg weakness. Speech is normal and fluent. Objective ECG Impression: Normal sinus rhythm Rightward axis Imaging Multiple studies:: Radiologist's impression: Brain MRI: Acute/subacute left internal capsule ischemia without superimposed hemorrhage. Atrophy and chronic microvascular ischemic changes are present. Head and neck CT: No significant intracranial arterial abnormality is seen. No significant abnormality is seen within the arteries of the neck. Brain CT: Small area of hypoattenuation within the left basal ganglia, concerning for subacute infarct. Recommend MRI brain for further evaluation. This is not definitely seen on prior. No acute intracranial hemorrhage. Chest x-ray: No acute cardiopulmonary abnormality is seen. Labs 11/15/23 06:07 11/15/23 06:07 Labs: Laboratory Results - last 24 hr 11/14/23 11/14/23 11/15/23 15:35 18:31 06:07 WBC 4.8 4.9 RBC 4.86 4.56 Hgb 14.6 13.5 Hct 41.7 38.9 MCV 85.8 85.5 MCH 30.0 29.5 MCHC 34.9 34.6 RDW 13.3 12.9 Plt Count 290 265 Neut % (Auto) 47.3 L 81.7 H D Lymph % (Auto) 35.5 15.3 L D [place] % (Auto) 12.4 2.8 L Eos % (Auto) 4.2 H 0.0 L Baso % (Auto) 0.6 0.2 Neut # (Auto) 2200 4000 Lymph # (Auto) 1700 800 L [place] # (Auto) 600 100 Eos # (Auto) 200 0 Baso # (Auto) 0 0 PT 11.1 INR 1.0 APTT 34 Sodium 140 136 L Potassium 3.6 4.1 Chloride 99 102 Carbon Dioxide 37 H 30 BUN 15 15 Creatinine 0.84 0.65 Estimated GFR > 60 > 60 BUN/Creatinine Ratio 17.9 23.1 H Glucose 115 H 129 H Hemoglobin A1c 5.5 Calcium 9.6 9.0 Magnesium 2.0 Total Bilirubin 0.6 AST 27 ALT 13 Alkaline Phosphatase 56 Total Creatine Kinase 46 Troponin I < 0.012 Total Protein 7.5 Albumin 4.3 Globulin 3.2 Albumin/Globulin Ratio 1.3 Triglycerides 62 Cholesterol 260 H LDL Cholesterol, Calc 191 H HDL Cholesterol 57 U Opiates 300ng/mL cut Negative Ur Oxycodone Screen Negative Urine Methadone Screen Negative Ur Barbiturates Screen Negative U Tricyclic Antidepress Negative Ur Phencyclidine Scrn Negative Ur Amphetamines Screen Negative U Methamphetamines Scrn Negative Ur MDMA Scrn (Ecstasy) Negative U Benzodiazepines Scrn Negative Urine Cocaine Screen Negative U Marijuana (THC) Screen Negative Urine pH Normal Urine Specific [place] Normal Ur Creatinine Normal [facility] Medical History Hyperlipidemia, mixed Right ACL tear Tear of meniscus of right knee Epidural abscess Iron deficiency anemia Cerebral atherosclerosis Primary open angle glaucoma 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 pt lives alone snug pushpa every day -- checks in with them by 930 am every day. 04/2023 Discharge Assessment & Plan Assessment and Plan Assessment: 1. Basal gangia CVA. Present on admission and active. 2. Hypertension. Present on admission and active. 3. Mild cognitive impairment. Present on admission and active. Plan of Treatment: Discharge home on dual antiplatelet therapy for 21 days. This is the addition of baby aspirin to her chronic Plavix as well as the addition of high dose atorvastatin. Outpatient physical therapy and close follow up with her primary care, Dr. Jiang is recommended. 911 for stroke symptoms. Discharge Plan Discharge Plan Patient Disposition: Home Provider Discharge Comment: Stable for discharge home in the care of her son. Discharge orders & Medications Prescriptions: New atorvastatin 20 mg Tablet 80 mg PO BEDTIME Qty: 30 2RF aspirin 81 mg Tablet,Delayed Release (Dr/Ec) 81 mg PO DAILY Qty: 21 0RF Continued clopidogrel 75 mg tablet 75 mg PO DAILY 30 Days Qty: 90 3RF hydrochlorothiazide 12.5 mg capsule 12.5 mg PO DAILY Qty: 90 0RF atenolol 50 mg tablet 50 mg PO DAILY lisinopril 40 mg tablet 40 mg PO DAILY Qty: 90 1RF Follow up/Referrals: Aditya Jiang MD [Primary Care Provider] - Discharge Health Status Multidrug resistant organism: No MDRO Diet/Activity/Treatments Diet: Low-cholesterol Activity: As tolerated. Please use a walker for now, outpatient physical therapy and occupational therapy are advised. Dr. Jiang can make these referrals. Visit Report/Discharge Packet Stand Alone Forms: Patient Portal/API, Stroke Signs & Symptoms Discharge Data Primary Care Provider: Aditya Jiang Attending Provider: Heladio Castro Admit Date/Time: 11/14/23 21:43
--- NOTE | 2023-11-15 11:53 | OT.IP.EVAL ---
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 Osteomyelitis of vertebra, site unspecified Primary open angle glaucoma Right ACL tear Tear of meniscus of right knee Surgical History (Last Reviewed 11/15/23 @ 07:53 by Oscar Girard MD) History of pneumothorax S/P cataract surgery (~07/07/14) Occupational Therapy Inpatient Evaluation/Re-Eval M1 PT/OT-IP Prior Functional Status Start: 11/15/23 12:17 Freq: NEEDED Status: Discharge Protocol: Document 11/15/23 12:26 [facility] (Rec: 11/15/23 12:49 [facility] [id number]) Medical Review Prior Functional Status Communication Indepednent Mobility and Gait Pt does not use a device. Activities of Daily Living and IADL's Pt able to do ADL needs and having more difficulty with bills and medication management needs. Pt's family states will be assist her with those needs now. Social History Household Members none Living Arrangements House Home Environment Standard Height Toilet,Walk in Shower,Tub/Shower M2 OT-IP Current Condition Start: 11/15/23 12:25 Freq: Status: Discharge Protocol: Document 11/15/23 12:26 [facility] (Rec: 11/15/23 12:49 [facility] [id number]) Occupational Therapy Current Condition Current Condition Evaluation Date 11/15/23 Treatment Diagnosis Acute/subacute left internal capsule ischemia Diagnosis Onset Date 11/14/23 M3 OT- IP Subjective and Pain Start: 11/15/23 12:25 Freq: Status: Discharge Protocol: Document 11/15/23 12:26 [facility] (Rec: 11/15/23 12:49 [facility] [id number]) OT- Subjective Occupational Therapy Visit Type Type Initial Evaluation Visit Start Time 11:30 Visit Stop Time 11:53 Occupational Therapy Visit Comments Patient Comments Pt agreed to get dressed andn do OT eval. Pt's son in law present for part of OT eval. Patient/Caregiver Goals TO go home. OT Pain Assessment Pain When Pain Assessed At Rest Pain Present Pain Present Denied Pain M4 OT- IP ADL's Start: 11/15/23 12:25 Freq: Status: Discharge Protocol: Document 11/15/23 12:26 [facility] (Rec: 11/15/23 12:49 [facility] [id number]) OT CWI-Qbjm-[id number] General Evaluation Self-Feeding Ability Independent OT ADL-Grooming Comments OT Grooming Comments NO issues anticipated, not preformed. OT ADL-Oral Care Comments Oral Care Comments Not performed. OT ADL-Dressing General Eval Upper Body Dressing Ability Independent Lower Body Dressing Ability Independent OT ADL-Toileting General Evaluation Toileting Ability Independent OT ADL-Bathing Comments OT Bathing Comments best to have supervision for bathing needs. Pt sit on the edge of the jacuzzi tub before getting in. M5 OT- IP IADL's Start: 11/15/23 12:25 Freq: Status: Discharge Protocol: Document 11/15/23 12:26 [facility] (Rec: 11/15/23 12:49 [facility] [id number]) OT-Instrumental Activities of Daily Living Deficits IADL Deficits Identified Deficits Home Safety Awareness Awareness of Need for Assistance at Home Decreased Awareness Home Safety Comments Increased time to answer home safety questions. Medication Management Medication Management Comments FAmily to assist. Money Management Money Management Comments FAily to assist. Meal Preparation Meal Preparation Comments Best to have supervision and assist as needed. Suggested to pt's son in law to observe , supervise and assist pt as needed for meals and IADL needs. Recordist Chief Recordist Chief Caregiver Provides Assist Driving Driving Concerns Identified Regarding Safety M6 OT- IP Functional Cognition Start: 11/15/23 12:25 Freq: Status: Discharge Protocol: Document 11/15/23 12:26 [facility] (Rec: 11/15/23 12:49 [facility] [id number]) Cognitive Factors Limiting Selfcare Function Cognitive Ability Level of Alertness Alert Patient Orientation Name,Age,Birthday,Month,Date, Year,Day of Week,Place, Situation Attention Span Ability Capable of Focused Attention, Capable of Sustained Attention Memory Description Short Term Impaired,Working Impaired Problem Solving Ability Needs Assist to Identify Solutions Executive Function Ability Unable to Switch Focus,Unable to Remember Details Cognitive Tests SLUMS Pt scored 21/30 which borderline between dementia and mild neuro-cognitive deficits. Pt scored 22/30 during last admit on 05/15/23 with diagnosis on righ [employer]GAL [employer] PROFESSIONAL disturbution cortical occipital infract. For today' s score-Pt able to states 11 animals in one minute, able to recall 2/5 objects after time passed, pt not able to recall 4 digit number backwards, not able to draw the hours of the clock correctly after time given, able to answer 3/4 questions right after paragraph read. Cognitive Comments Cognitive Assessment Comments Pt scored 258 seconds versus 311 sec on [place] Making Part B which still implies severe deficits for visual attention, speed of processing, task switching, executive functioning, and mental flexibility. Pt still suggested not to drive and pt' s son in law agreed. Pt's son in law states pt to stay with them for now. OT- Vision and Hearing OT- Hearing Assessment OT- Hearing Assessment WFL OT- Vision Assessment Visual Acuity Glasses For Reading Visual Attentiveness WFL Occular Pursuits WFL Visual Convergence WFL Visual Thorne WFL Diplopia Absent M7 OT- IP Mobility and Balance Start: 11/15/23 12:25 Freq: Status: Discharge Protocol: Document 11/15/23 12:26 [facility] (Rec: 11/15/23 12:49 [facility] [id number]) OT-Transfer Assessment Sit to and From Stand Sit to and from Stand Independent Transfers Transfer Ability Independent Technique Transfer Destination Chair Transfer Technique Stand Step Pivot Devices Transfer Assistive Devices None Comments Mobility Comments Pt able to move independently in the room. Pt would benefit from possible hand held assist for uneven terrain or cane. OT- Balance Assessment Sitting Balance and Reactions Static Sitting Balance Ability Normal Dynamic Sitting Balance Ability Normal Standing Balance and Reactions Static Standing Balance Ability Normal Dynamic Standing Balance Ability Good M8 OT- IP Objective Assessments Start: 11/15/23 12:25 Freq: Status: Discharge Protocol: Document 11/15/23 12:26 [facility] (Rec: 11/15/23 12:49 [facility] [id number]) OT Gross Range of Motion Upper Extremity Range of Motion Assessment Within Functional Limits OT Strength Upper Extremity Strength Assessment Within Functional Limits OT- Coordination Assessment Upper Extremity Finger to Nose Test Within Functional Limits M9 OT- IP Assessment and Plan Start: 11/15/23 12:25 Freq: Status: Discharge Protocol: Document 11/15/23 12:26 [facility] (Rec: 11/15/23 12:49 [facility] [id number]) OT Summary Assessment and Plan Potential Rehabilitation Potential Good Analytic Complexity at Evaluation Moderate Summary OT Impairments Balance,Functional Cognition, Functional Mobility,Bathing Progress Towards Goals Progressing Toward Goals Assessment Summary Pt MOD complexity and main barriers are higher level problem solving and thinking. Pt scored 21/30 on the SLUMS which implies borderline dementia versus mild neurocogntive deficits. Pt scored 253 seconds on [place] Making Part B which implies severe impairments for visual attention, speed of processing , mental flexibility, executive functioning, and task switching. Pt to stay with her family for now and suggested to observe the pt especially with IADl need and provide supervision and assist as needed. Pt to go home with assist. Goals Bathing Goal Independent Days to Meet Goals 3 Discharge Recommendations OT Discharge Recommendations Home with 24/7 Assist Available Transportation Needs at Discharge Private Vehicle
--- NOTE | 2023-11-15 12:10 | PC.NURSE ---
Patient is A&Ox2-3, slightly forgetful. She calls appropriately for assistance. She is evaluated by the hospitalist and results of CT scan are discussed with patient and her son at bedside. She is evaluated by PT& OT and cleared for discharge home today with son with recommendations of using FWW/cane as well as follow up with outpatient rehab PT/OT. Son and patient verbalize understanding of discharge recommendations, medications, and folllow up care. She is escorted via w/ch by [employer] to private vehicle with her son for discharge home back to [facility] at 12 15 pm this afternoon with priorty boarding pass.
== END 2023-11-15 12:14 | disposition home or self-care (01) ==
LOC: ED 21:02 → AC 21:22
PROVIDERS: Student in an Organized Health Care Education/Training Program; Admitting Provider Internal Medicine; Emergency Provider Emergency Medicine; PCP Family Medicine; Referring Provider Emergency Medicine; Visit Provider Internal Medicine
DX: I63.89 Other cerebral infarction (principal); I10 Essential (primary) hypertension; Z86.73 Personal history of transient ischemic attack (TIA), and cerebral infarction without residual deficits; R29.700 NIHSS score 0
CPT/HCPCS: 36415; 70450; 70496; 70498; 70551; 71045; 80048; 80053; 80061; 80305; 81003; 82550; 83036; 83735; 84484; 85025; 85610; 85730; 93005; 93010; 96372; 96374; 96375; 97116; 97129; 97162; 97166; 99285; G0378; J1200; J1644; J2405; J2919; Q9967

== ENCOUNTER → 2024-01-03 15:04 | Outpatient (CLI) | payer MEDICARE, OTHER, SELFPAY ==
[2023-11-14 21:23] VITALS: BMI 22.6
--- NOTE | 2024-01-03 15:07 | DI.MRI.S_ITS ---
PROCEDURE: MR HEAD/BRAIN WO/W CON INDICATIONS: follow up CVA TECHNIQUE: Noncontrast axial T1 spin echo, axial T2 fast spin echo, sagittal and axial FLAIR, coronal T2 fast spin echo, axial gradient echo, axial diffusion and ADC through the brain. After the administration of contrast, axial and coronal and sagittal T1 spin echo with fat saturation through the brain. COMPARISON: [facility], MR, MR HEAD/BRAIN WO CON, 11/14/2023, 18:38. [facility], CT, CT HEAD/BRAIN WO CON, 11/14/2023, 16:18. FINDINGS: Image quality: This examination is limited by involuntary motion artifact. CSF spaces: Basal cisterns are patent. No extra-axial fluid collections. Ventricles are normal in size and shape. Brain: The previously seen diffusion weighted abnormality within the anterior left thalamus/basal ganglia has resolved. There is mild volume loss seen within this region. No findings of hemorrhage can be seen at this site. A few foci of hemorrhage can be seen within the deep white matter on the right, as on series 10, image 15, which is stable. No midline shift. No intracranial masses. No abnormal intracranial enhancement. There is cerebral volume loss for age. There is periventricular white matter chronic small vessel ischemic change. The brainstem appears normal. Normal intravascular flow voids are present. Relatively prominent perivascular spaces are noted. Skull and face: Calvarial marrow is normal in signal. Orbits appear normal. Note is made of bilateral lens replacements. Sinuses: Sinuses and mastoids appear clear. IMPRESSION: Expected evolution of the left-sided infarction involving the anterior thalamus/basal ganglia. No superimposed hemorrhage is seen. Dictated by: Fito Mendoza M.D. on 01/03/2024 at 15:23 Approved by: Fito Mendoza M.D. on 01/03/2024 at 15:26
== END ==
LOC: MRI 15:06
PROVIDERS: PCP Family Medicine; Referring Provider Family Medicine; Visit Provider Family Medicine
DX: I63.9 Cerebral infarction, unspecified (principal); Z86.73 Personal history of transient ischemic attack (TIA), and cerebral infarction without residual deficits
CPT/HCPCS: 70553; A9579

== ENCOUNTER → 2024-02-19 11:08 | Outpatient (CLI) | payer MEDICARE, OTHER, SELFPAY ==
[2023-11-14 21:23] VITALS: BMI 22.6
[2024-02-19 19:45] LABS: Add Manual Diff / Slide Review NO; Basophils Absolute Auto 0 /uL (0-100); Basophils Percent Auto 0.6 % (0-2); Eosinophils Absolute Auto 200 /uL (0-450); Eosinophils Percent Auto 3.7 % (2-4); Hematocrit 42.6 % (36-46); Hemoglobin 14.6 g/dL (12.0-16.0); Lymphocytes Absolute Auto 1500 /uL (1100-4500); Mean Corpuscular HGB Conc 34.3 % (30-36); Mean Corpuscular Hemoglobin 30.1 PG (26-34); Monocytes Absolute Auto 600 /uL (0-900); Monocytes Percent Auto 11.8 % (3-14); Neutrophils Absolute Auto 2900 /uL (1500-7000); Neutrophils Percent Auto 55.9 % (50-75); Platelet Count 314 X10^3/uL (150-400); Red Blood Cell Count 4.84 X10^6/uL (4.0-5.2); Red Cell Distribution Width 14.3 % (11.6-14.8); White Blood Cell Count 5.2 X10^3/uL (4.5-11.0)
[2024-02-19 20:04] LABS: BUN Creatinine Ratio 13.6 (6-22); Blood Urea Nitrogen 11 mg/dL (7-17); Calcium 9.8 mg/dL (8.4-10.2); Carbon Dioxide 38 mmol/L (22-32); Chloride 96 mmol/L (98-107); Cholesterol 267 mg/dL (140-199); Estimated Glomerular Filt Rate > 60 mL/min (>60); Glucose 100 mg/dL (80-110); HDL Cholesterol 64 mg/dL (40-60); HEMOLYSIS 18 (0-50); LDL Cholesterol Calculated 175 mg/dL (<100); Potassium 4.2 mmol/L (3.4-5.1); Sodium 133 mmol/L (137-145); Triglycerides 140 mg/dL (35-150)
== END ==
PROVIDERS: PCP Family Medicine; Visit Provider Family Medicine
DX: I63.9 Cerebral infarction, unspecified (principal); I10 Essential (primary) hypertension; D50.9 Iron deficiency anemia, unspecified; E78.2 Mixed hyperlipidemia
CPT/HCPCS: 80048; 80061; 85025

== ENCOUNTER 2024-06-18 10:35 | Emergency (ER) | payer MEDICARE, OTHER, SELFPAY ==
[2023-11-14 21:23] VITALS: BMI 22.6
[2024-06-18] VITALS (21 sets, daily range): BP systolic 170–215; BP diastolic 82–105; PULSE 66–84; RESP 13; TEMP 36.4; O2SAT 92–98; BMI 22.8
--- NOTE | 2024-06-18 10:54 | DI.CT.S_ITS ---
PROCEDURE: CT ANGIO HEAD AND NECK INDICATIONS: Headache TECHNIQUE: After the administration of intravenous contrast, 1 mm thick sections acquired from the aortic arch through the [place]. 3-dimensional nqxvcht-sgtfeqoox-bzcxmptryc (MIP) and/or volume rendering reformats were acquired of the central intracranial vasculature and neck separately. For radiation dose reduction, the following was used: automated exposure control, adjustment of mA and/or kV according to patient size. COMPARISON: [facility], CT, CT ANGIO HEAD AND NECK, 11/14/2023, 16:18. [facility], CT, CT HEAD/BRAIN WO CON, 11/14/2023, 16:18. [facility], MR, MR HEAD/BRAIN WO CON, 11/14/2023, 18:38. [facility], MR, MR HEAD/BRAIN WO/W CON, 01/03/2024, 15:16. [facility], CT, CT HEAD/BRAIN WO CON, 06/18/2024, 11:38. FINDINGS: Image quality: Diagnostic. BRAIN: CSF spaces: Ventricles are normal in size and shape. Basal cisterns are patent. No extra-axial fluid collections. Brain: No acute abnormality of the brain can be seen. Prior left basal ganglia/lacunar infarctions noted. Skull and face: Calvarium and facial bones appear intact, without suspicious lesions. Orbits appear normal. Sinuses: Sinuses and mastoids are clear. HEAD CT ANGIOGRAPHY: Anterior circulation: Intracranial internal carotid arteries are normal in size and flow. The flow within the paired anterior cerebral arteries is normal and symmetric. The flow within the middle cerebral arteries is normal and symmetric. The anterior communicating artery is seen. No aneurysms are seen. Posterior circulation: Visualized portions of the vertebral arteries demonstrate normal caliber, and join to form a normal appearing basilar artery. There is a prominent right posterior communicating artery seen, with an accompanying diminutive right P1 segment. This is attributed to a type origin of the right posterior cerebral artery, which is considered to be a normal developmental variant of typically no clinical consequence. The flow within the posterior cerebral arteries is normal and symmetric. No aneurysms are seen. NECK CT ANGIOGRAPHY: Carotid system: The great vessels demonstrate a conventional anatomy as they arise from the aortic arch. The origins of the common carotid arteries appear patent. The common carotid arteries demonstrate normal caliber and courses. The bifurcation regions are both widely patent. The internal carotid arteries demonstrate normal calibers and courses. Posterior circulation: The origins of the vertebral arteries demonstrate atherosclerotic irregularity and calcification, with 30-50% narrowing seen on each side. The more superior extracranial portions of both vertebral arteries also demonstrate normal courses and calibers. They join to form a normal appearing basilar artery. Soft tissues: Visualized neck soft tissues demonstrate no suspicious abnormalities. Bones: No suspicious bony lesions. Visualized cervical spine appears normally aligned. Moderate cervical spine degenerative change. IMPRESSION: No significant intracranial arterial abnormality is seen. No significant carotid abnormality is seen. Mild stenoses seen involving the origins of the vertebral arteries. Additional findings: Bhovrv-ob-Votdoy developmental anomalies. Moderate cervical spine degenerative change Any quantitative measurements of stenosis were performed using NASCET criteria. Dictated by: Fito Mendoza M.D. on 06/18/2024 at 11:15 Approved by: Fito Mendoza M.D. on 06/18/2024 at 11:17
--- NOTE | 2024-06-18 10:54 | DI.CT.S_ITS ---
PROCEDURE: CT HEAD/BRAIN WO CON INDICATIONS: Headache TECHNIQUE: Noncontrast 4.5 mm thick angled axial sections acquired from the foramen magnum to the vertex, with coronal and sagittal reformats. For radiation dose reduction, the following was used: automated exposure control, adjustment of mA and/or kV according to patient size. COMPARISON: [facility], MR, MR HEAD/BRAIN WO/W CON, 01/03/2024, 15:16. [facility], CT, CT ANGIO HEAD AND NECK, 06/18/2024, 11:38. [facility], CT, CT ANGIO HEAD AND NECK, 11/14/2023, 16:18. [facility], CT, CT HEAD/BRAIN WO CON, 11/14/2023, 16:18. FINDINGS: Image quality: Diagnostic. CSF spaces: Basal cisterns are patent. No extra-axial fluid collections. The ventricles are symmetric in size and shape. Brain: No intracranial bleeds or mass effect. There is cerebral volume loss, with resultant ventricular and sulcal prominence. There are periventricular and deep white matter chronic small vessel ischemic changes. Remote left thalamus/basal ganglia lacunar infarctions. There is intracranial internal carotid artery atherosclerosis. Skull and face: Calvarium and visualized facial bones appear intact, without suspicious lesions. Sinuses: Visualized sinuses and mastoids are clear. IMPRESSION: Stable noncontrast head CT for age, without a cause of headache identified. Remote left basal ganglia/left thalamus lacunar infarctions again seen. Dictated by: Fito Mendoza M.D. on 06/18/2024 at 11:14 Approved by: Fito Mendoza M.D. on 06/18/2024 at 11:15
--- NOTE | 2024-06-18 10:56 | ED.HA ---
HPI - Headache General Chief Complaint: Headache Stated Complaint: Headaches x4 days Time Seen by Provider: 06/18/24 10:46 Mode of arrival: Ambulatory History of Present Illness HPI Narrative: Patient here for headache for the past 5 days. Started on left temporal radiate to the occiput now right temporal area. However today no headache. Headache was worse Saturday. Better Saturday but returned on Saturday, none today. No nausea or vomiting no vision changes. Patient has history of strokes with symptoms of headaches. Patient states she is not on aspirin. Has not been on aspirin for a long time, daughter at bedside and they do understand why she is not on baby aspirin daily. Primary care is Dr. Jiang. Patient is seen here in May and November of last year, both with headaches and acute strokes. Patient has had IV contrast in the past. Her only complaint is nausea. She did have CT angiogram last year without difficulty. Fast exam is negative. Patient at baseline at this time. Her strokes in the past left no residual affects of weakness numbness tingling. No facial droop. Related Data Previous Rx's Medication Instructions Recorded atenolol 50 mg tablet 50 mg PO DAILY #90 tabs 06/10/24 clopidogrel 75 mg tablet (Plavix) 75 mg PO DAILY #90 tabs 06/10/24 estradiol 1 mg tablet 1 mg PO DAILY 3 weeks #90 tabs 06/10/24 ezetimibe 10 mg tablet (Zetia) 10 mg PO DAILY #90 tabs 06/10/24 lisinopril 40 mg tablet 40 mg PO DAILY #90 tabs 06/10/24 aspirin 81 mg tablet,delayed 81 mg PO DAILY #21 tabs 06/11/24 release cholestyramine (with sugar) 4 gram See Rx Instructions PO BID #378 06/11/24 oral powder grams hydrochlorothiazide 12.5 mg capsule 12.5 mg PO DAILY #90 caps 06/11/24 Allergies Allergy/AdvReac Type Severity Reaction Status Date / Time Iodine and Iodide Containing Allergy Mild Vomiting Verified 06/18/24 10:46 Produc morphine Allergy Mild Verified 06/18/24 10:46 Review of Systems Review of Systems Narrative: GENERAL: Negative chills, fatigue, malaise, fever, sweats. HEENT: Negative sinus pain, ear pain, sore throat RESPIRATORY: Negative dyspnea, cough CARDIOVASCULAR: Negative chest pain, palpitations GASTROINTESTINAL: Negative vomiting, nausea, abdominal pain : Negative dysuria, frequency, hematuria MUSCULOSKELETAL: Negative muscle or bony pain SKIN: Negative rash, skin lesions NEUROLOGIC: Negative weakness, numbness, positive headache ROS Unobtainable: All systems reviewed & are unremarkable except as noted in HPI and below Patient History Medical History (Updated 06/18/24 @ 17:00 by Lino Travis MD) Hyperlipidemia, mixed Right ACL tear Tear of meniscus of right knee Epidural abscess Cerebral atherosclerosis Primary open angle glaucoma 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 pt lives alone snug pushpa every day -- checks in with them by 930 am every day. 04/2023 Smoking Status: Unknown if ever smoked Exam Narrative Exam Narrative: GENERAL: in no distress, not toxic not dyspneic HEAD: Normocephalic. EYES: Pupils equal round ENT: Mucous membranes moist. NECK: Trachea midline. CARDIOVASCULAR: Regular rate and rhythm RESPIRATORY: Clear to auscultation. Breath sounds equal bilaterally. No wheezes, rales, or rhonchi. GASTROINTESTINAL: Abdomen soft, non-tender EXTREMITIES: No gross deformities. BACK: No flank tenderness. NEURO: AOx4. 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 Fast exam is negative. Elevate each leg without drift. Negative pronator drift. SKIN: Warm and dry PSYCH: Not anxious, is cooperative Initial Vital Signs Initial Vital Signs: Vital Signs Temperature 97.5 F L 06/18/24 10:37 Pulse Rate 69 06/18/24 10:37 Respiratory Rate 13 06/18/24 10:37 Blood Pressure 198/92 H 06/18/24 10:37 Pulse Oximetry 97 06/18/24 10:37 Oxygen Delivery Method Room Air 06/18/24 10:37 Scores NIH Stroke Scale Level of Conciousness: Alert, keenly responsive Ask month/age: Answers both questions correctly. Open/close eyes, close hand: Performs both tasks correctly Best gaze horizontal: Normal Visual ornelas: No visual loss Facial palsy: Normal symetrical movement Left arm drift: No drift for full 10 sec Right arm drift: No drift for full 10 sec Left leg drift: No drift for full 5 sec Right leg drift: No drift for full 5 sec Limb ataxia: Absent Sensory on face/arms/legs: Normal, no sensory loss Best language: No aphasia, normal Dysarthria: Normal Extinction or inattention: No abnormality Total NIH Stroke scale score: 0 Course Orders Ordered: Discontinued Medications Atenolol (Atenolol 25 Mg Tablet) 50 mg PO NOW ONE Stop: 06/18/24 12:28 Last Admin: 06/18/24 12:37 Dose: 50 mg Documented By: RUDDY Sodium Chloride (Normal Saline 0.9%) 1,000 mls @ 1,000 mls/hr IV BOLUS ONE Stop: 06/18/24 11:58 Last Infusion: 06/18/24 14:24 Dose: Infused Documented By: Admin: 06/18/24 11:17 Dose: 1,000 mls/hr Documented By: CRUZITO Lisinopril (Lisinopril 20 Mg Tablet) 40 mg PO NOW ONE Stop: 06/18/24 15:47 Last Admin: 06/18/24 15:58 Dose: 40 mg Documented By: JOSE Ondansetron HCl (Ondansetron 4 Mg/2 Ml Inj) 4 mg IV NOW ONE Stop: 06/18/24 11:00 Last Admin: 06/18/24 13:07 Dose: Not Given Documented By: JOSE Vital Signs Vital signs: Vital Signs - 8 hr 06/18/24 10:37 06/18/24 10:42 06/18/24 10:43 Temperature 97.5 F L Pulse Rate 69 72 Respiratory Rate 13 Blood Pressure 198/92 H 198/92 H Pulse Oximetry 97 97 Oxygen Delivery Method Room Air 06/18/24 10:43 06/18/24 11:00 06/18/24 11:50 Temperature Pulse Rate 68 66 84 Respiratory Rate Blood Pressure Pulse Oximetry 97 98 96 Oxygen Delivery Method 06/18/24 11:51 06/18/24 11:51 06/18/24 12:00 Temperature Pulse Rate 84 Respiratory Rate Blood Pressure 209/97 H 210/100 H Pulse Oximetry 94 Oxygen Delivery Method 06/18/24 12:00 06/18/24 12:30 06/18/24 12:30 Temperature Pulse Rate 78 73 Respiratory Rate Blood Pressure 215/101 H Pulse Oximetry 96 96 Oxygen Delivery Method 06/18/24 12:46 06/18/24 12:46 06/18/24 13:00 Temperature Pulse Rate 80 Respiratory Rate Blood Pressure 199/94 H 170/105 H Pulse Oximetry 94 Oxygen Delivery Method 06/18/24 13:00 06/18/24 13:30 06/18/24 13:30 Temperature Pulse Rate 75 73 Respiratory Rate Blood Pressure 172/92 H Pulse Oximetry 97 96 Oxygen Delivery Method 06/18/24 14:45 06/18/24 14:54 06/18/24 14:54 Temperature Pulse Rate 73 68 Respiratory Rate Blood Pressure 211/95 H Pulse Oximetry 93 97 Oxygen Delivery Method 06/18/24 15:00 06/18/24 15:00 06/18/24 15:30 Temperature Pulse Rate 71 70 Respiratory Rate Blood Pressure 198/93 H Pulse Oximetry 96 96 Oxygen Delivery Method 06/18/24 15:30 06/18/24 15:58 06/18/24 16:00 Temperature Pulse Rate 74 75 Respiratory Rate Blood Pressure 207/96 H 207/96 H Pulse Oximetry 96 Oxygen Delivery Method 06/18/24 16:00 06/18/24 16:30 06/18/24 16:30 Temperature Pulse Rate 69 Respiratory Rate Blood Pressure 215/98 H 206/95 H Pulse Oximetry 98 Oxygen Delivery Method 06/18/24 16:43 06/18/24 16:43 Temperature Pulse Rate 78 Respiratory Rate Blood Pressure 184/82 H Pulse Oximetry 92 Oxygen Delivery Method MDM - Headache Lab Data 06/18/24 10:53 06/18/24 10:53 Labs: Lab Results 06/18/24 06/18/24 Range/Units 10:53 11:32 WBC 6.8 (4.5-11.0) X10^3/uL RBC 4.61 (4.0-5.2) X10^6/uL Hgb 13.7 (12.0-16.0) g/dL Hct 40.4 (36-46) % MCV 87.7 (80-100) fL MCH 29.8 (26-34) PG MCHC 33.9 (30-36) % RDW 13.5 (11.6-14.8) % Plt Count 391 (150-400) X10^3/uL Neut % (Auto) 65.1 (50-75) % Lymph % (Auto) 19.0 L (25-40) % Charles % (Auto) 12.8 (3-14) % Eos % (Auto) 2.2 (2-4) % Baso % (Auto) 0.9 (0-2) % Neut # (Auto) 4400 (1151-5800) /uL Lymph # (Auto) 1300 (3471-1787) /uL Charles # (Auto) 900 (0-900) /uL Eos # (Auto) 200 (0-450) /uL Baso # (Auto) 100 (0-100) /uL PT 11.4 (9.4-12.5) SECONDS INR 1.0 (0.9-1.3) APTT 35 (25.1-36.5) SECONDS Sodium 137 (137-145) mmol/L Potassium 4.2 (3.4-5.1) mmol/L Chloride 100 (98-107) mmol/L Carbon Dioxide 30 (22-32) mmol/L BUN 13 (7-17) mg/dL Creatinine 0.65 (0.52-1.04) mg/dL Estimated GFR > 60 (>60) mL/min BUN/Creatinine Ratio 20.0 (6-22) Glucose 79 (70-99) mg/dL Calcium 9.1 (8.4-10.2) mg/dL Total Bilirubin 0.5 (0.2-1.3) mg/dL AST 25 (14-36) IU/L ALT 13 (<35) IU/L Alkaline Phosphatase 77 (38-126) U/L Total Creatine Kinase 24 L (30-135) U/L Troponin I < 0.012 (0.01-0.034) ng/mL Total Protein 7.8 (6.3-8.2) g/dL Albumin 4.2 (3.5-5.0) g/dL Globulin 3.6 (1.7-4.1) g/dL Albumin/Globulin Ratio 1.2 (1.0-2.8) Urine Color Yellow Urine Appearance Clear Urine pH 6.5 (4.5-8.0) Ur Specific [place] <=1.005 (1.000-1.035) Urine Protein Negative (Negative) Urine Glucose (UA) Negative (Negative) g/dL Urine Ketones Negative (NEGATIVE) Urine Occult Blood Negative (Negative) Urine Nitrate Negative (Negative) Urine Bilirubin Negative (NEGATIVE) Urine Urobilinogen 0.2 (0.2) E.U./dL Ur Leukocyte Esterase Negative (NEGATIVE) Urine RBC None seen (0-5/HPF) Urine WBC None seen (0-5/HPF) Ur Squamous Epith Cells None seen (0-5/HPF) Urine Bacteria None seen (None) Ur Culture Indicated? Cult not indicated Vol Urine Centrifuged 10ml (spun) Imaging Data CTA - brain/neck: Radiologist's Impression: [address] [address] [address] Scan Report Signed Patient: Phuong Golden MR#: [id number] : 1935 Acct:[id number] Age/Sex: 89 / F Date of Service: 06/18/24 Loc: ED Accession Number: [id number] Procedure: CT angio head and neck Ordering Provider: Lino Travis MD PROCEDURE: CT ANGIO HEAD AND NECK INDICATIONS: Headache TECHNIQUE: After the administration of intravenous contrast, 1 mm thick sections acquired from the aortic arch through the [place] of [place]. 3-dimensional wrzyvxa-xzakynihp-dgiqtlcfqg (MIP) and/or volume rendering reformats were acquired of the central intracranial vasculature and neck separately. For radiation dose reduction, the following was used: automated exposure control, adjustment of mA and/or kV according to patient size. COMPARISON: [facility], CT, CT ANGIO HEAD AND NECK, 11/14/2023, 16:18. [facility], CT, CT HEAD/BRAIN WO CON, 11/14/2023, 16:18. [facility], MR, MR HEAD/BRAIN WO CON, 11/14/2023, 18:38. [facility], MR, MR HEAD/BRAIN WO/W CON, 01/03/2024, 15:16. [facility], CT, CT HEAD/BRAIN WO CON, 06/18/2024, 11:38. FINDINGS: Image quality: Diagnostic. BRAIN: CSF spaces: Ventricles are normal in size and shape. Basal cisterns are patent. No extra-axial fluid collections. Brain: No acute abnormality of the brain can be seen. Prior left basal ganglia/lacunar infarctions noted. Skull and face: Calvarium and facial bones appear intact, without suspicious lesions. Orbits appear normal. Sinuses: Sinuses and mastoids are clear. HEAD CT ANGIOGRAPHY: Anterior circulation: Intracranial internal carotid arteries are normal in size and flow. The flow within the paired anterior cerebral arteries is normal and symmetric. The flow within the middle cerebral arteries is normal and symmetric. The anterior communicating artery is seen. No aneurysms are seen. Posterior circulation: Visualized portions of the vertebral arteries demonstrate normal caliber, and join to form a normal appearing basilar artery. There is a prominent right posterior communicating artery seen, with an accompanying diminutive right P1 segment. This is attributed to a type origin of the right posterior cerebral artery, which is considered to be a normal developmental variant of typically no clinical consequence. The flow within the posterior cerebral arteries is normal and symmetric. No aneurysms are seen. NECK CT ANGIOGRAPHY: Carotid system: The great vessels demonstrate a conventional anatomy as they arise from the aortic arch. The origins of the common carotid arteries appear patent. The common carotid arteries demonstrate normal caliber and courses. The bifurcation regions are both widely patent. The internal carotid arteries demonstrate normal calibers and courses. Posterior circulation: The origins of the vertebral arteries demonstrate atherosclerotic irregularity and calcification, with 30-50% narrowing seen on each side. The more superior extracranial portions of both vertebral arteries also demonstrate normal courses and calibers. They join to form a normal appearing basilar artery. Soft tissues: Visualized neck soft tissues demonstrate no suspicious abnormalities. Bones: No suspicious bony lesions. Visualized cervical spine appears normally aligned. Moderate cervical spine degenerative change. IMPRESSION: No significant intracranial arterial abnormality is seen. No significant carotid abnormality is seen. Mild stenoses seen involving the origins of the vertebral arteries. Additional findings: Ggcrmj-cr-Rwpesv developmental anomalies. Moderate cervical spine degenerative change Any quantitative measurements of stenosis were performed using NASCET criteria. Dictated by: Fito Mendoza M.D. on 06/18/2024 at 11:15 Approved by: Fito Mendoza M.D. on 06/18/2024 at 11:17 CT scan - head: Radiologist's Impression: [address] [address] [address] Scan Report Signed Patient: Phuong Golden MR#: [id number] : 1935 Acct:[id number] Age/Sex: 89 / F Date of Service: 06/18/24 Loc: ED Accession Number: [id number] Procedure: CT head/brain wo con Ordering Provider: Lino Travis MD PROCEDURE: CT HEAD/BRAIN WO CON INDICATIONS: Headache TECHNIQUE: Noncontrast 4.5 mm thick angled axial sections acquired from the foramen magnum to the vertex, with coronal and sagittal reformats. For radiation dose reduction, the following was used: automated exposure control, adjustment of mA and/or kV according to patient size. COMPARISON: [facility], MR, MR HEAD/BRAIN WO/W CON, 01/03/2024, 15:16. [facility], CT, CT ANGIO HEAD AND NECK, 06/18/2024, 11:38. [facility], CT, CT ANGIO HEAD AND NECK, 11/14/2023, 16:18. [facility], CT, CT HEAD/BRAIN WO CON, 11/14/2023, 16:18. FINDINGS: Image quality: Diagnostic. CSF spaces: Basal cisterns are patent. No extra-axial fluid collections. The ventricles are symmetric in size and shape. Brain: No intracranial bleeds or mass effect. There is cerebral volume loss, with resultant ventricular and sulcal prominence. There are periventricular and deep white matter chronic small vessel ischemic changes. Remote left thalamus/basal ganglia lacunar infarctions. There is intracranial internal carotid artery atherosclerosis. Skull and face: Calvarium and visualized facial bones appear intact, without suspicious lesions. Sinuses: Visualized sinuses and mastoids are clear. IMPRESSION: Stable noncontrast head CT for age, without a cause of headache identified. Remote left basal ganglia/left thalamus lacunar infarctions again seen. Dictated by: Fito Mendoza M.D. on 06/18/2024 at 11:14 Approved by: Fito Mendoza M.D. on 06/18/2024 at 11:15 MRI brain: Radiologist's Impression: [address] [address] Magnetic Resonance Report Signed Patient: Phuong Golden MR#: [id number] : 1935 Acct:[id number] Age/Sex: 89 / F Date of Service: 06/18/24 Loc: ED Accession Number: [id number] Procedure: MR head/brain wo con Ordering Provider: Lino Travis MD PROCEDURE: MR HEAD/BRAIN WO CON INDICATIONS: Headache/confusion/stroke history TECHNIQUE: Noncontrast axial T1 spin echo, axial T2 fast spin echo, sagittal and axial FLAIR, coronal T2 fast spin echo, axial gradient echo, axial diffusion and ADC through the brain. COMPARISON: [facility], , MR HEAD/BRAIN WO CON, 11/14/2023, 18:38. FINDINGS: CSF Spaces: Basal cisterns are patent. No extra-axial fluid collections. Ventricles are normal in size and shape. Brain: No intracranial masses or hemorrhage. Khalil/white matter interface is normal. Brainstem appears normal. Diffusion-weighted sequence is unremarkable without evidence of acute infarct. Normal intravascular flow voids are present. Moderate atrophy and white matter chronic ischemic change. Old right insular and thalamic microhemorrhage sequela remains unchanged. Bilateral intraocular lens replacements noted. Skull and face: Calvarium has normal marrow signal. Orbits appear normal. Sinuses: Sinuses and mastoids are clear. IMPRESSION: No acute findings. No acute infarct or mass lesion. Approved by: Daryl Brown M.D. on 06/18/2024 at 14:07 MDM Narrative Medical decision making narrative: Patient here for headache for the past 5 days. Started on left temporal radiate to the occiput now right temporal area. However today no headache. Headache was worse Saturday. Better Saturday but returned on Saturday, none today. No nausea or vomiting no vision changes. Patient has history of strokes with symptoms of headaches. Patient states she is not on aspirin. Has not been on aspirin for a long time, daughter at bedside and they do understand why she is not on baby aspirin daily. Primary care is Dr. Jiang. Patient is seen here in May and November of last year, both with headaches and acute strokes. Patient has had IV contrast in the past. Her only complaint is nausea. She did have CT angiogram last year without difficulty. Fast exam is negative. Patient at baseline at this time. Her strokes in the past left no residual affects of weakness numbness tingling. No facial droop. After history and exam, CT head CT angiogram head and neck EKG normal saline Zofran CBC CMP EKG troponin urinalysis [facility] Medical records reviewed: ER visits here May and November 2023 for stroke Differential considered: Includes but not limited to stroke TIA migraine headache head bleed Lab Test results independently reviewed as above. Pertinent findings: WBC 6.8 hemoglobin 13.7 sodium 137 potassium 4.2 BUN 13 creatinine 0.65 troponin less than 0.012 Independently reviewed EKG normal sinus rhythm rate [address] elevation or depression Imaging studies independently reviewed: CT head CT angiogram head and neck no acute finding, MRI brain no acute finding Consultations: None indicated at this time. Re-evaluations: 12:34 p.m.. Blood pressure is elevated but no headache. Patient's home atenolol 50 mg has been ordered. Reviewed results with patient and daughter, MRI will now be ordered. So far CT scan imaging have been reassuring. They did see primary care yesterday in the office and was instructed to come here. 4:58 p.m.. Blood pressure 184/82. Patient remains asymptomatic no headache. No neuro complaints. Family at bedside. They desire discharge home. Patient states she feels anxious and maybe that is why her blood pressure is elevated. They will resume aspirin 81 mg daily. Return precautions reviewed. They will follow up family doctor regarding her blood pressure. Discussion: Appropriate for discharge home. CT scan MRI are reassuring. Blood pressure has improved. Return precautions reviewed. They desire discharge home. Diagnosis: Headache Discharge Plan Departure Patient Disposition: Home Clinical Impression: Headache Qualifiers: Headache type: unspecified Headache chronicity pattern: acute headache Intractability: not intractable Qualified Code(s): R51.9 - Headache, unspecified Instructions: Essential Hypertension, DI for Headache Activity Restrictions/Additional Instructions: Please see your family doctor within a week for recheck of your blood pressure. Please do resume taking your aspirin daily as instructed by your primary care provider. Return if worse if any questions or concerns. Your laboratory studies imaging studies MRI are reassuring today. Your blood pressure did improve during course of stay. Continue home medications. Prescriptions: No Action estradiol 1 mg tablet 1 mg PO DAILY 21 Days Qty: 90 4RF Rx Instructions: off 1 week; repeat cycle atenolol 50 mg tablet 50 mg PO DAILY Qty: 90 0RF ezetimibe [Zetia] 10 mg tablet 10 mg PO DAILY Qty: 90 3RF clopidogrel [Plavix] 75 mg tablet 75 mg PO DAILY Qty: 90 0RF lisinopril 40 mg tablet 40 mg PO DAILY Qty: 90 0RF aspirin 81 mg tablet,delayed release (DR/EC) 81 mg PO DAILY Qty: 21 0RF hydrochlorothiazide 12.5 mg capsule 12.5 mg PO DAILY Qty: 90 1RF cholestyramine (with sugar) 4 gram powder See Rx Instructions PO BID Qty: 378 5RF Rx Instructions: orally twice a day; Take 4 grams twice daily .administer w/meal; avoid other meds within 1hr before or 4-6hr after dose Referrals: Aditya Jiang MD [Primary Care Provider] - Stand Alone Forms: Patient Portal/API/Survey
--- NOTE | 2024-06-18 11:04 | PC.NURSE ---
Pt arrived to ED today because she has been experiencing intermittent headache. States that she has been having headache for 6 days. Hx of stroke x2 & TIA according to daughter. Daughter states that pt has been having worsening memory issues as well. Pt denies any changes in vision, slurred speech, one-sided weakness.
[2024-06-18 11:08] LABS: Prothrombin Time 11.4 SECONDS (9.4-12.5)
--- NOTE | 2024-06-18 11:08 | EKG_ITS ---
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
[2024-06-18 11:10] LABS: Add Manual Diff / Slide Review NO; Basophils Absolute Auto 100 /uL (0-100); Basophils Percent Auto 0.9 % (0-2); Eosinophils Absolute Auto 200 /uL (0-450); Eosinophils Percent Auto 2.2 % (2-4); Hematocrit 40.4 % (36-46); Hemoglobin 13.7 g/dL (12.0-16.0); Lymphocytes Absolute Auto 1300 /uL (1100-4500); Mean Corpuscular HGB Conc 33.9 % (30-36); Mean Corpuscular Hemoglobin 29.8 PG (26-34); Mean Corpuscular Volume 87.7 fL (80-100); Monocytes Absolute Auto 900 /uL (0-900); Monocytes Percent Auto 12.8 % (3-14); Neutrophils Absolute Auto 4400 /uL (1500-7000); Neutrophils Percent Auto 65.1 % (50-75); PTT Partial Thromboplastin Tim 35 SECONDS (25.1-36.5); Platelet Count 391 X10^3/uL (150-400); Red Blood Cell Count 4.61 X10^6/uL (4.0-5.2); Red Cell Distribution Width 13.5 % (11.6-14.8); White Blood Cell Count 6.8 X10^3/uL (4.5-11.0)
[2024-06-18] MEDS: SODIUM CHLORIDE 0.9% 1,000 ML 1000 ML IV (11:17)
[2024-06-18 11:24] LABS: Alanine Aminotransferase 13 IU/L (<35); Albumin 4.2 g/dL (3.5-5.0); Albumin Globulin Ratio 1.2 (1.0-2.8); Alkaline Phosphatase 77 U/L (38-126); Aspartate Aminotransferase 25 IU/L (14-36); Bilirubin Total 0.5 mg/dL (0.2-1.3); Blood Urea Nitrogen 13 mg/dL (7-17); Calcium 9.1 mg/dL (8.4-10.2); Carbon Dioxide 30 mmol/L (22-32); Chloride 100 mmol/L (98-107); Creatine Kinase 24 U/L (30-135); Estimated Glomerular Filt Rate > 60 mL/min (>60); Globulin 3.6 g/dL (1.7-4.1); Glucose 79 mg/dL (70-99); HEMOLYSIS < 15 (0-50); Potassium 4.2 mmol/L (3.4-5.1); Sodium 137 mmol/L (137-145); Total Protein 7.8 g/dL (6.3-8.2)
[2024-06-18 11:36] LABS: Troponin I < 0.012 ng/mL (0.01-0.034)
[2024-06-18 12:09] LABS: Appearance Urine UA CLEAR; Bilirubin Urine UA NEGATIVE (NEGATIVE); Color Urine UA YELLOW; Glucose Urine UA NEGATIVE (Negative); Ketones Urine UA NEGATIVE (NEGATIVE); Leukocyte Esterase Urine UA NEGATIVE (NEGATIVE); Nitrite Urine UA NEGATIVE (Negative); Occult Blood Urine UA NEGATIVE (Negative); Protein Urine UA NEGATIVE (Negative); Specific Gravity Urine UA <=1.005 (1.000-1.035); Urobilinogen Urine UA 0.2 E.U./dL (0.2)
[2024-06-18 12:10] LABS: pH Urine UA 6.5 (4.5-8.0)
--- NOTE | 2024-06-18 12:32 | DI.MRI.S_ITS ---
PROCEDURE: MR HEAD/BRAIN WO CON INDICATIONS: Headache/confusion/stroke history TECHNIQUE: Noncontrast axial T1 spin echo, axial T2 fast spin echo, sagittal and axial FLAIR, coronal T2 fast spin echo, axial gradient echo, axial diffusion and ADC through the brain. COMPARISON: [facility], MR, MR HEAD/BRAIN WO CON, 11/14/2023, 18:38. FINDINGS: CSF Spaces: Basal cisterns are patent. No extra-axial fluid collections. Ventricles are normal in size and shape. Brain: No intracranial masses or hemorrhage. Khalil/white matter interface is normal. Brainstem appears normal. Diffusion-weighted sequence is unremarkable without evidence of acute infarct. Normal intravascular flow voids are present. Moderate atrophy and white matter chronic ischemic change. Old right insular and thalamic microhemorrhage sequela remains unchanged. Bilateral intraocular lens replacements noted. Skull and face: Calvarium has normal marrow signal. Orbits appear normal. Sinuses: Sinuses and mastoids are clear. IMPRESSION: No acute findings. No acute infarct or mass lesion. Approved by: Darly Brown M.D. on 06/18/2024 at 14:07
[2024-06-18] MEDS: atenoloL 25 MG TABLET 50 MG PO (12:37)
[2024-06-18 12:41] LABS: Bacteria Urine None Seen; Culture Indicated Urine Cult Not Indicated; RBC Urine None Seen (0-5/HPF); Squamous Epithelial Cell Urine None Seen (0-5/HPF); Urine Volume 10mL (spun); WBC Urine None Seen (0-5/HPF)
[2024-06-18] MEDS: lisinopriL 20 MG TABLET 40 MG PO (15:58)
== END 2024-06-18 17:15 | disposition home or self-care (01) ==
PROVIDERS: Emergency Provider Emergency Medicine; PCP Family Medicine
DX: R51.9 Headache, unspecified (principal)
CPT/HCPCS: 36415; 70450; 70496; 70498; 70551; 80053; 81001; 82550; 84484; 85025; 85610; 85730; 93005; 93010; 96360; 96361; 99284

== ENCOUNTER → 2024-10-16 11:29 | Outpatient (CLI) | payer MEDICARE, OTHER, SELFPAY ==
[2023-11-14 21:23] VITALS: BMI 22.6
--- NOTE | 2024-10-16 11:32 | DI.ECHO.S_ITS ---
[facility] : : [id number] : [place] : : [id number] : : Phone: [phone] Echocardiogram Report + + :Name: LANDEN SAUNDERS Study Date: 10/16/2024 Height: 62 in : :[facility] ReadingLocation: Weight: 120 lb : : Gender: Female BSA: 1.5 m2 : :: 1935 Age: 89 yrs BP: 143/84 mmHg: :Reason For Study: CONGESTIVE HEART FAILURE : :Ordering Physician: ABILIO, : :NAOMIE Performed By: Kishore Nguyen : :Referring: NAOMIE KNOX : + + Interpretation Summary The ejection fraction is estimated to be 65-70%. Grade II diastolic dysfunction with elevated left atrial pressure. The right ventricle is normal in size and function. The left atrium is mildly dilated. There is mild to moderate mitral regurgitation. The IVC is of normal diameter and collapses greater than 50% with a sniff. This suggests a low right atrial pressure of 3 mm Hg. Procedure: A two-dimensional transthoracic echocardiogram with color flow and Doppler was performed. The study quality was technically good. Comparison is made with the echocardiogram of 05/16/2023. The patient was in normal sinus rhythm during the exam. Left Ventricle: The left ventricle is normal in size. Left ventricular wall thickness is mildly increased. There is no ventricular septal defect visualized. The ejection fraction is estimated to be 65-70%. There are no focal wall motion abnormalities. Grade II diastolic dysfunction with elevated left atrial pressure. Right Ventricle: The right ventricle is normal in size and function. Atria: The left atrium is mildly dilated. Right atrial size is normal. There is no Doppler evidence for an interatrial shunt. Mitral Valve: The mitral valve leaflets appear mildly thickened. There is moderate mitral annular calcification. The mitral valve leaflets are mildly calcified. There is a flat closure plane of the the mitral valve leaflets. The mitral valve mean gradient is 1.8 mmHg. There is mild to moderate mitral regurgitation. Aortic Valve: The aortic valve is trileaflet. The aortic valve is mildly calcified. The aortic valve opens well. There is no hemodynamically significant valvular aortic stenosis. No aortic regurgitation is present. Tricuspid Valve: The tricuspid valve leaflets are thin and pliable. There is trace tricuspid regurgitation. Pulmonic Valve: The pulmonic valve is not well seen, but is grossly normal. There is trace pulmonic regurgitation. Great Vessels: The aortic root is normal size. The dimensions of the ascending aorta are normal. The pulmonary artery is normal size. The IVC is of normal diameter and collapses greater than 50% with a sniff. This suggests a low right atrial pressure of 3 mm Hg. Pericardium/ Pleura There is no pericardial effusion. There is no pleural effusion. MMode/2D Measurements & Calculations LVIDd: 4.1 cm LVOT diam: 1.8 cm LVIDs: 2.3 cm Ao root diam: 3.1 cm FS: 42.2 % asc Aorta Diam: 3.1 cm EPSS: 1.7 cm IVSd: 1.2 cm LVPWd: 0.74 cm LV hammonds. diameter/BSA (cm/m^2): 2.6 LV sys. diameter/BSA (cm/m^2): 1.5 LA A2 area: 19.3 cm2 RA long axis: 4.8 cm LA A4 area: 18.9 cm2 RA area: 15.0 cm2 LA length (vol): 5.2 cm RA vol: 40.2 ml LA vol: 59.8 ml RA : 26.1 ml/m2 LA vol index: 38.9 ml/m2 IVC diam: 0.76 cm RVD1 (basal): 3.4 cm RVD2 (mid): 3.0 cm TAPSE: 2.2 cm Doppler Measurements & Calculations Ao V2 max: 150.0 cm/sec LVOT Max Olayinka: 75.4 cm/sec Ao V2 mean: 110.0 cm/sec LV V1 max P.3 mmHg Ao max P.0 mmHg LV V1 VTI: 22.9 cm Ao mean P.3 mmHg ALINA(I,D): 1.5 cm2 Ao V2 VTI: 39.4 cm ALINA(V,D): 1.3 cm2 sev ratio: 0.58 ALINA indexed to BSA (cm^2/m^2): 1.00 MV E max olayinka: 102.7 cm/sec TR max olayinka: 313.2 cm/sec MV A max olayinka: 93.6 cm/sec TR max P.2 mmHg MV E/A: 1.1 PA V2 max: 65.0 cm/sec Med Peak E' Olayinka: 2.5 cm/sec PA V2 mean: 47.5 cm/sec E/E' med: 40.3 PA mean P.99 mmHg Lat Peak E' Olayinka: 3.4 cm/sec PA pr(Accel): 20.8 mmHg E/E' lat: 30.1 E/e' average: 35.2 MV dec time: 0.29 sec MVA(VTI): 1.7 cm2 MV V2 mean: 62.5 cm/sec SV(LVOT): 60.4 ml MV mean P.8 mmHg MV V2 VTI: 35.9 cm Reading Physician:05:04 PM
== END ==
PROVIDERS: PCP Family Medicine; Referring Provider Family Medicine; Visit Provider Family Medicine
DX: I34.81 Nonrheumatic mitral (valve) annulus calcification (principal); I34.0 Nonrheumatic mitral (valve) insufficiency; I50.9 Heart failure, unspecified; I48.91 Unspecified atrial fibrillation
CPT/HCPCS: 93306

== ENCOUNTER → 2024-10-19 10:53 | Outpatient (CLI) | payer MEDICARE, OTHER, SELFPAY ==
[2023-11-14 21:23] VITALS: BMI 22.6
[2024-10-19 19:47] LABS: Add Manual Diff / Slide Review NO; Hematocrit 42.7 % (36-46); Hemoglobin 14.4 g/dL (12.0-16.0); Lymphocytes Absolute Auto 1200 /uL (1100-4500); Mean Corpuscular HGB Conc 33.6 % (30-36); Mean Corpuscular Hemoglobin 28.5 PG (26-34); Mean Corpuscular Volume 84.7 fL (80-100); Platelet Count 274 X10^3/uL (150-400)
[2024-10-19 19:48] LABS: Blood Urea Nitrogen 19 mg/dL (7-17); Calcium 9.4 mg/dL (8.4-10.2); Carbon Dioxide 32 mmol/L (22-32); Chloride 99 mmol/L (98-107); Estimated Glomerular Filt Rate > 60 mL/min (>60); Glucose 156 mg/dL (70-99); HEMOLYSIS < 15 (0-50); Potassium 4.5 mmol/L (3.4-5.1); Sodium 138 mmol/L (137-145)
[2024-10-19 19:57] LABS: NT-proBNP (BNP-Adult 18+) 569 pg/mL (<450)
== END ==
PROVIDERS: PCP Family Medicine; Visit Provider Family Medicine
DX: I48.91 Unspecified atrial fibrillation (principal); I50.9 Heart failure, unspecified; I10 Essential (primary) hypertension; Z86.73 Personal history of transient ischemic attack (TIA), and cerebral infarction without residual deficits; R06.02 Shortness of breath
CPT/HCPCS: 80048; 83880; 85025